=== PATIENT | female | born 1980 | race Caucasian/White ===

== ENCOUNTER 2016-06-19 21:48 | Emergency (ER) | payer OTHER ==
[~2016-06-19] VITALS: Ht 160 cm; Wt 126.7 kg
[~2016-06-19 21:48] MED LIST: ALBUAER2 INH; ASPI-390 PO; ATV/1 PO; BCPILLS PO; CETI10TA84 PO; CYM/30 PO; MODA1TAB5 PO
[2016-06-19 21:55] VITALS: TEMP 36.7; Ht 160 cm; Wt 126.7 kg
[2016-06-19] MEDS ORDERED: SODIUM CHLORIDE 0.9% 1000ML 1,000 ML IV STA (22:44)
[2016-06-19] MEDS ORDERED: KETOROLAC TROMETHAMINE 30 MG/ML VIAL IV STA (22:44)
[2016-06-19] MEDS ORDERED: PROCHLORPERAZINE 5 MG/ML 2 ML VIAL IV STA (22:44)
[2016-06-19] MEDS ORDERED: DiphenhydrAMINE HCL 50 MG/ML VIAL IV STA (22:44)
[2016-06-19] MEDS ORDERED: MoRPHine SULFATE 10 MG/ML CARP/VIAL IV STA (23:45)
[2016-06-19] MEDS ORDERED: VNTHFA/IN INH (23:45)
[2016-06-19] MEDS ORDERED: SPR28 PO (23:47)
[2016-06-19] MEDS ORDERED: RIBO100T9 PO (23:47)
[2016-06-19] MEDS ORDERED: MAGN400T6 PO (23:47)
[2016-06-19] MEDS ORDERED: VTMD PO (23:47)
--- NOTE | 2016-06-20 00:44 | EMERGENCY ROOM VISIT NOTE ---
History First contact with patient: 22:31 Chief Complaint: HEADACHE Stated Complaint: MIGRAINE, EAR PAIN, NAUSEA History of Present Illness The patient is a 35 year old female who presents to the Emergency Room with complaints of a migraine headache which started earlier today. The patient states she has had a gradually worsening headache since this afternoon. She does have a history of migraines and sees Dr. Noel for these. She states she had an MRI last year. She takes magnesium and vitamin B2 daily. She took ibuprofen and Zofran at home without relief. She reports generalized head pain which she rates a 9/10. She has associated nausea, but no vomiting. She states this headache is similar to previous episode of migraines. She does report some left ear pain over the past few days, but states that she had this checked by her primary care provider today and they did not see any infection. She was recently treated for influenza and pneumonia. She denies any fevers/ chills, neck pain/stiffness, numbness, weakness, changes in vision, slurred speech or confusion. Review of Systems A complete 10-point Review of Systems was discussed with the patient, with pertinent positives and negatives listed in the History of Present Illness. All remaining Review of Systems questions can be considered negative unless otherwise specified. Past Medical/Surgical History Medical Problems: (1) Migraines Family History Diabetes mellitus FH: cancer FH: heart disease FH: lung disease Kidney disease Kidney stones Social History Smoking Status: Never Smoker Alcohol Use: occasionally Marital Status: single Housing Status: lives with family Current/Historical Medications Scheduled Cetirizine (Zyrtec), 10 MG PO DAILY Duloxetine HCl (Cymbalta), 30 MG PO DAILY Ergocalciferol (Vitamin D), 50,000 UNIT PO WK Ethinyl Estrad/Norgestimate (Sprintec 28), 1 TAB PO DAILY Lorazepam (Ativan), 1 MG PO HS Magnesium Oxide (Mag-Ox), 400 MG PO HS Riboflavin (Vitamin B-2), 100 MG PO DAILY Scheduled PRN Albuterol Hfa (Ventolin Hfa), 2 PUFFS INH QID PRN for SOB/Wheezing Shruhid-Zivhkumpscrqf-Asslwiaq (Excedrin Migraine), 2 TABS PO Q6H PRN for Migraine Modafinil (Provigil), 100 MG PO DAILY PRN for restless legs Allergies Coded Allergies: Sulfa Antibiotics (Verified Allergy, Severe, SEVERE REACTION, 06/19/16) Amoxicillin (Verified Allergy, Intermediate, HIVES, 06/19/16) Clavulanic Acid (Verified Allergy, Intermediate, HIVES, 06/19/16) Lactose (Verified Allergy, Intermediate, 06/19/16) Silver Sulfadiazine (Verified Allergy, Intermediate, HIVES, 06/19/16) Latex (Verified Allergy, Mild, REDNESS, 06/19/16) Physical Exam Vital Signs Date Time Temp Pulse Resp B/P Pulse Ox O2 Delivery O2 Flow Rate FiO2 06/20/16 00:53 76 16 122/86 98 06/19/16 23:50 67 16 127/63 98 Room Air 06/19/16 21:55 36.7 82 18 146/91 96 Room Air Physical Exam VITALS: Vitals are noted on the nurse's note and reviewed by myself. Vital signs stable. GENERAL: This is a 35-year-old female, in no acute distress, nondiaphoretic, well-developed well-nourished. SKIN: Capillary reflex less than 2 seconds. HEENT: Normocephalic. PERRLA. EOMI. Nares patent. Mucous membranes moist. Neck is supple without nuchal rigidity. HEART: Regular rate and rhythm without murmurs gallops or rubs. LUNGS: Clear to auscultation bilaterally without wheezes, rales or rhonchi. ABDOMEN: Positive bowel sounds x 4. Soft, nontender to palpation. MUSCULOSKELETAL: Full range of motion of all extremities. Strength 5/5 throughout. NEURO: Patient was alert and oriented to person place and time. Normal sensation to light and sharp touch. Deep tendon reflexes 2+ throughout. Normal finger to nose testing. Normal rapid alternating movements. No focal neurological deficits. Medical Decision & Procedures Medications Administered Medications (Trade) Dose Ordered Sig/Paco Route Start Time Stop Time Status Last Admin Dose Admin Sodium Chloride (Nss 1000ml) 1,000 ml @ 999 mls/hr Q1H1M STAT IV 06/19/16 22:44 06/19/16 23:44 DC 06/19/16 23:06 999 MLS/HR Prochlorperazine Edisylate (Compazine Inj) 10 mg NOW STAT IV 06/19/16 22:44 06/19/16 22:47 DC 06/19/16 23:06 10 MG Diphenhydramine HCl (Benadryl Inj) 50 mg NOW STAT IV 06/19/16 22:44 06/19/16 22:47 DC 06/19/16 23:06 50 MG Ketorolac Tromethamine (Toradol Inj) 30 mg NOW STAT IV 06/19/16 22:44 06/19/16 22:47 DC 06/19/16 23:07 30 MG Morphine Sulfate (MoRPHine SULFATE INJ) 6 mg NOW STAT IV 06/19/16 23:45 06/19/16 23:47 DC 06/20/16 00:04 6 MG Medical Decision The differential diagnosis includes acute intracranial bleed, meningitis, encephalitis, mass or mass effect, sinusitis, infection, tumor, headache, temporal arteritis and carbon monoxide exposure, and migraine. The patient was evaluated as above. Previous records were reviewed. The patient has been here multiple times previously for migraines. She states that her symptoms today are similar to symptoms with previous migraines. She was initially treated with IV Compazine, Benadryl, and Toradol. She was hydrated with normal saline solution. She had some relief of her headache but stated that her pain was still a 7/10. She was then given 6 mg morphine IV and had full relief of her headache. She'll be discharged home to follow-up with her primary care provider or neurologist. She will return for worsening symptoms. Based on the patient's presentation, lab results, and imaging studies, I feel the patient is stable for outpatient treatment. Discharge instructions were reviewed with the patient. The patient verbalized understanding of my assessment and treatment plan and was discharged home in good condition. Impression Primary Impression: Migraine Departure Information Dispostion Home / Self-Care Condition GOOD Referrals No Doctor, Assigned (PCP) Patient Instructions My [facility] Additional Instructions You have been treated in the Emergency Department for a Headache. You have received pain medicine in the emergency department which impairs your ability to operate a vehicle. It is illegal for you to drive after receiving these medicines. For pain control, you can use the following oaim-gst-ubjstak medicines (if >12 yo): - Regular strength (325mg/tab) Tylenol (acetaminophen) 2 tabs every 4-6 hours as needed. Do not exceed 12 tablets in a 24 hour period. Avoid taking more than 4 grams (4000 mg) of Tylenol per day. This includes any other sources of acetaminophen you may take on a regular basis. - Regular strength (200 mg/tab) Advil (ibuprofen) 1-2 tabs every 4-6 hours as needed. Do not exceed a dose of 3200 mg per day. You should relax in a quiet, dark place for the rest of the day. Avoid any possible triggers including: cigarette smoke, caffeine, nicotine, chocolate, wine, beer, loud noises or music, or bright lights. You should schedule a follow-up appointment in 2-3 days with your Primary Care Provider or established Neurologist for further evaluation and treatment of your Headache. Return to the Emergency Department if your current symptoms worsen despite treatment course outlined above, or if you develop any of the following symptoms : intractable pain despite aforementioned treatment course, visual disturbances , loss of vision, unilateral weakness or facial drooping, slurring of speech, loss of coordination, or loss of consciousness. Problem Qualifiers Primary Impression: Migraine Migraine type: without aura Status migrainosus presence: without status migrainosus Intractability: not intractable Qualified Codes: G43.009 - Migraine without aura, not intractable, without status migrainosus
[2016-06-20 00:53] VITALS: BP 122/86; PULSE 76; O2SAT 98
[2016-06-27] MEDS ORDERED: CIPR-255 PO (07:18)
[2016-06-27] MEDS ORDERED: HYDR-5688 PO (07:18)
[2016-07-22] MEDS ORDERED: DICY10CA55 PO (13:37)
[2016-07-22] MEDS ORDERED: VITAMIN B2 PO (13:37)
[2016-07-22] MEDS ORDERED: PANT1TAB48 PO (13:37)
[2016-07-22] MEDS ORDERED: TRAM-10 PO (13:37)
== END 2016-06-20 00:54 | disposition home or self-care (01) ==
LOC: C.EDB 21:50
DX: G43.009 Migraine without aura, not intractable, without status migrainosus (principal); Z87.01 Personal history of pneumonia (recurrent); Z83.3 Family history of diabetes mellitus; Z79.899 Other long term (current) drug therapy

== ENCOUNTER 2016-06-25 10:59 | Inpatient (IN) | payer OTHER ==
[~2016-06-25] VITALS: Ht 160 cm; Wt 126.3 kg
[~2016-06-25 10:59] MED LIST changes: -ALBUAER2 INH; -BCPILLS PO; +MAGN400T6 PO; +RIBO100T9 PO; +SPR28 PO; +VNTHFA/IN INH; +VTMD PO
[2016-06-25] MEDS ORDERED: AMPH20TA2 PO (11:34)
[2016-06-25] MEDS ORDERED: KETOROLAC TROMETHAMINE 30 MG/ML VIAL IV STA (12:21)
[2016-06-25] MEDS ORDERED: HYDROmorphone INJ 1 MG/ML SYR IV STA (12:21)
[2016-06-25] MEDS ORDERED: SODIUM CHLORIDE 0.9% 1000ML 1,000 ML IV STA (12:21)
[2016-06-25] MEDS ORDERED: ONDANSETRON INJ 2 MG/ML 2 ML VIAL IV STA (12:21)
--- NOTE | 2016-06-25 12:24 | EMERGENCY ROOM VISIT NOTE ---
History Report prepared by Francois: Rashad Louis Under the Supervision of: Dr. Carlee Cheung M.D. First contact with patient: 12:05 Chief Complaint: ABDOMINAL PAIN Stated Complaint: ABD PAIN, N,D Nursing Triage Summary: Pt c/o right upper/mid abd pain around to back, ongoing thing, but this pain started last night after dinner. She had explosive diarrhea. Seeing Dr Guerrero. Nausea and vomiting as well. Fever yesterday Carpal Tunnel 06/07/16, then had flu immediatly after and then got pneumonia. History of Present Illness The patient is a 35 year old female who presents to the Emergency Room with complaints of persistent right-sided abdominal pain beginning last night. She notes also having a headache, fever of 102 yesterday, nausea, and diarrhea. She took Ibuprofen this morning for her headache. The patient also notes having a cough from a recent diagnosis of pneumonia. She reports following with Dr. Guerrero for potential gallbladder issues. Source of History: patient Onset: last night Position: abdomen (right-sided) Quality: other (abdominal pain) Timing: other (persistent) Associated Symptoms: + cough, + diarrhea, + fevers (102 yesterday), + headache, + nausea Review of Systems See HPI for pertinent positives & negatives. A total of 10 systems reviewed and were otherwise negative. Past Medical & Surgical Medical Problems: (1) Migraines Family History Diabetes mellitus FH: cancer FH: heart disease FH: lung disease Kidney disease Kidney stones Social History Smoking Status: Former Smoker Alcohol Use: occasionally Marital Status: single Housing Status: lives with family Current/Historical Medications Scheduled Amphetamine-Dextroamphetamine 20MG (Adderall 20MG), 20 MG PO BID Cetirizine (Zyrtec), 10 MG PO DAILY Duloxetine HCl (Cymbalta), 30 MG PO DAILY Ergocalciferol (Vitamin D), 50,000 UNIT PO WK Ethinyl Estrad/Norgestimate (Sprintec 28), 1 TAB PO DAILY Lorazepam (Ativan), 1 MG PO HS Magnesium Oxide (Mag-Ox), 400 MG PO HS Riboflavin (Vitamin B-2), 100 MG PO DAILY Scheduled PRN Albuterol Hfa (Ventolin Hfa), 2 PUFFS INH QID PRN for SOB/Wheezing Yvwkspu-Ppieflsxherok-Nwzzgozn (Excedrin Migraine), 2 TABS PO Q6H PRN for Migraine Modafinil (Provigil), 100 MG PO DAILY PRN for restless legs Allergies Coded Allergies: Sulfa Antibiotics (Verified Allergy, Severe, SEVERE REACTION, 06/25/16) Amoxicillin (Verified Allergy, Intermediate, HIVES, 06/25/16) Clavulanic Acid (Verified Allergy, Intermediate, HIVES, 06/25/16) Lactose (Verified Allergy, Intermediate, 06/25/16) Silver Sulfadiazine (Verified Allergy, Intermediate, HIVES, 06/25/16) Latex (Verified Allergy, Mild, REDNESS, 06/25/16) Cephalexin (Verified Allergy, Unknown, hives, 06/25/16) Physical Exam Vital Signs Date Time Temp Pulse Resp B/P Pulse Ox O2 Delivery O2 Flow Rate FiO2 06/25/16 16:06 104 20 107/66 98 Room Air 06/25/16 15:01 77 18 104/63 94 Room Air 06/25/16 13:10 82 18 124/78 95 Room Air 06/25/16 11:03 36.6 103 18 137/96 94 Room Air Physical Exam CONSTITUTIONAL: Mild distress. HEENT: No icterus, moist mucous membranes NECK: No meningismus, trachea is midline. CARDIOVASCULAR: Regular rate, normal perfusion RESPIRATORY: Unlabored breathing. Clear to auscultation. GASTROINTESTINAL: Mild right upper quadrant tenderness. GENITOURINARY: No flank tenderness MUSCULOSKELETAL: Full range of motion NEUROLOGIC: No acute gross focal deficits. PSYCHIATRIC: Normal affect SKIN: Normal for ethnicity. Medical Decision & Procedures ER Provider Diagnostic Interpretation: Radiology results as stated below per my review and radiologist interpretation. CHEST 2 VIEWS ROUTINE FINDINGS: The cardiac and mediastinal contours are normal. There is no evidence of focal pulmonary consolidation. There is no evidence of failure. No pleural effusions are visualized.[ No free air is visualized IMPRESSION: No active disease in the chest. Electronically signed by: Morteza Donnelly M.D. 06/25/2016 1:37 PM Dictated Date/Time: 06/25/2016 1:36 PM ULTRASOUND RIGHT UPPER QUADRANT ABDOMEN FINDINGS: Liver: The liver is enlarged, measuring over 19 cm in length. The liver demonstrates heterogeneously increased echotexture consistent with hepatic steatosis. There is no intrahepatic biliary ductal dilatation. The main portal vein is patent. Gallbladder: Normal biliary sludge is noted. No shadowing gallstones are identified. There is no gallbladder wall thickening or pericholecystic fluid. A sonographic Whaley's sign is reportedly absent. The common bile duct measures up to 0.5 cm in diameter. Pancreas: Visualized portions of the pancreatic head and body are normal in appearance. Right kidney: Survey images of the right kidney demonstrate normal size and echotexture. There is no hydronephrosis. Ascites: None. IMPRESSION: 1. No acute sonographic abnormality is identified. No shadowing gallstones are seen. Minimal biliary sludge is noted. 2. Hepatomegaly and hepatic steatosis. Electronically signed by: Aris Fox M.D. 06/25/2016 3:31 PM Dictated Date/Time: 06/25/2016 3:29 PM Laboratory Results 06/25/16 12:10 Red Blood Count 4.57, Mean Corpuscular Volume 91.0, Mean Corpuscular Hemoglobin 31.1, Mean Corpuscular Hemoglobin Concent 34.1, Mean Platelet Volume 10.3, Neutrophils (%) (Auto) 64.4, Lymphocytes (%) (Auto) 20.7, Monocytes (%) (Auto) 11.5, Eosinophils (%) (Auto) 3.0, Basophils (%) (Auto) 0.3, Neutrophils # (Auto ) 5.00, Lymphocytes # (Auto) 1.61, Monocytes # (Auto) 0.89, Eosinophils # (Auto ) 0.23, Basophils # (Auto) 0.02 06/25/16 12:10 Test 06/25/16 12:10 06/25/16 13:00 White Blood Count 7.76 K/uL (4.8-10.8) Red Blood Count 4.57 M/uL (4.2-5.4) Hemoglobin 14.2 g/dL (12.0-16.0) Hematocrit 41.6 % (37-47) Mean Corpuscular Volume 91.0 fL (80-100) Mean Corpuscular Hemoglobin 31.1 pg (25-34) Mean Corpuscular Hemoglobin Concent 34.1 g/dl (32-36) Platelet Count 336 K/uL (130-400) Mean Platelet Volume 10.3 fL (7.4-10.4) Neutrophils (%) (Auto) 64.4 % Lymphocytes (%) (Auto) 20.7 % Monocytes (%) (Auto) 11.5 % Eosinophils (%) (Auto) 3.0 % Basophils (%) (Auto) 0.3 % Neutrophils # (Auto) 5.00 K/uL (1.4-6.5) Lymphocytes # (Auto) 1.61 K/uL (1.2-3.4) Monocytes # (Auto) 0.89 K/uL (0.11-0.59) Eosinophils # (Auto) 0.23 K/uL (0-0.5) Basophils # (Auto) 0.02 K/uL (0-0.2) RDW Standard Deviation 42.9 fL (36.4-46.3) RDW Coefficient of Variation 12.9 % (11.5-14.5) Immature Granulocyte % (Auto) 0.1 % Immature Granulocyte # (Auto) 0.01 K/uL (0.00-0.02) Anion Gap 11.0 mmol/L (3-11) Est Creatinine Clear Calc Drug Dose 143.1 ml/min Estimated GFR () 127.9 Estimated GFR (Non- 110.4 BUN/Creatinine Ratio 11.9 (10-20) Calcium Level 8.8 mg/dl (8.5-10.1) Total Bilirubin 0.5 mg/dl (0.2-1) Direct Bilirubin 0.1 mg/dl (0-0.2) Aspartate Amino Transf (AST/SGOT) 40 U/L (15-37) Alanine Aminotransferase (ALT/SGPT) 64 U/L (12-78) Alkaline Phosphatase 58 U/L (45-117) Total Protein 7.0 gm/dl (6.4-8.2) Albumin 3.6 gm/dl (3.4-5.0) Lipase 152 U/L (73-393) Human Chorionic Gonadotropin, Qual NEG (NEG) Urine Color YELLOW Urine Appearance CLEAR (CLEAR) Urine pH 5.0 (4.5-7.5) Urine Specific [place] 1.012 (1.000-1.030) Urine Protein NEG (NEG) Urine Glucose (UA) NEG (NEG) Urine Ketones NEG (NEG) Urine Occult Blood TRACE (NEG) Urine Nitrite NEG (NEG) Urine Bilirubin NEG (NEG) Urine Urobilinogen NEG (NEG) Urine Leukocyte Esterase NEG (NEG) Urine WBC (Auto) 1-5 /hpf (0-5) Urine RBC (Auto) 5-10 /hpf (0-4) Urine Hyaline Casts (Auto) 1-5 /lpf (0-5) Urine Epithelial Cells (Auto) 20-30 /lpf (0-5) Urine Bacteria (Auto) 1+ (NEG) Labs reviewed by ED physician. Medications Administered Medications (Trade) Dose Ordered Sig/Paco Route Start Time Stop Time Status Last Admin Dose Admin Sodium Chloride (Nss 1000ml) 1,000 ml @ 0 mls/hr Q0M STAT IV 06/25/16 12:21 06/25/16 12:24 DC 06/25/16 12:28 999 MLS/HR Ketorolac Tromethamine (Toradol Inj) 30 mg NOW STAT IV 06/25/16 12:21 06/25/16 12:24 DC 06/25/16 12:36 30 MG Hydromorphone HCl (Dilaudid Inj) 1 mg PRN STAT IV 06/25/16 12:21 06/25/16 12:24 DC 06/25/16 12:37 1 MG Ondansetron HCl (Zofran Inj) 4 mg NOW STAT IV 06/25/16 12:21 06/25/16 12:24 DC 06/25/16 12:36 4 MG Metoclopramide HCl (Reglan Inj) 10 mg Q6H IV 06/25/16 15:00 07/25/16 14:59 06/25/16 15:02 10 MG ED Course 1220: Past medical records reviewed. The patient was evaluated in room C5. A complete history and physical examination was performed. 1221: Ordered Zofran Inj 4 mg, Dilaudid Inj 1 mg IV, Toradol Inj 30 mg, and NSS 1,000 ml @ 0 mls/hr Wide Open IV. 1500: Ordered Reglan Inj 10 mg IV. 1647: Discussed the patient's case with HUBERT Norman. The patient will be evaluated for further management. Medical Decision Differentials include cholecystitis, pneumonia, and pancreatitis. 35-year-old presents to the emergency department with acute on chronic right upper quadrant pain and a report of fever to 102 yesterday. His systems of cough without shortness of breath. Chest x-ray negative for pneumonia. She has a history of abnormal testing around her gallbladder and is concerned she may need a cholecystectomy. Case discussed with Dr. Gage cover for Dr. Guerrero who evaluated patient and will admit. Consults Time Called: 1644 Consulting Physician: HUBERT Norman [facility] Returned Call: [phone] Discussed the patient's case with HUBERT Norman. The patient will be evaluated for further management. Impression Primary Impression: Right upper quadrant abdominal pain Scribe Attestation The scribe's documentation has been prepared under my direction and personally reviewed by me in its entirety. I confirm that the note above accurately reflects all work, treatment, procedures, and medical decision making performed by me. Departure Information Dispostion Being Evaluated By Hospitalist Referrals Dian Parker D.O. (PCP) Patient Instructions My [facility]
[2016-06-25 13:01] LABS: BASO % 0.3 %; BASO ABS # 0.02 K/uL (0-0.2); COMPLETE YES; HEMATOCRIT 41.6 % (37-47); IG% 0.1 %; LYMPH % 20.7 %; LYMPH ABS # 1.61 K/uL (1.2-3.4); MEAN CORPUSCULAR HEMOGLOBIN 31.1 pg (25-34); MEAN CORPUSCULAR HGB CONC 34.1 g/dl (32-36); MEAN PLATELET VOLUME 10.3 fL (7.4-10.4); MONO % 11.5 %; NEUT % 64.4 %; PLATELET COUNT 336 K/uL (130-400); RED BLOOD COUNT 4.57 M/uL (4.2-5.4); WHITE BLOOD COUNT 7.76 K/uL (4.8-10.8)
[2016-06-25 13:21] LABS: BUN/CREATININE RATIO 11.9 (10-20); CALCIUM 8.8 mg/dl (8.5-10.1); CREATININE 0.71 mg/dl (0.60-1.20); POTASSIUM 3.8 mmol/L (3.5-5.1)
[2016-06-25 13:31] LABS: URINE APPEARANCE CLEAR (CLEAR); URINE BILIRUBIN NEG (NEG); URINE COLOR YELLOW; URINE EPITHELIAL CELL AUTO 20-30 /lpf (0-5); URINE NITRITE NEG (NEG); URINE SPECIFIC GRAVITY 1.012 (1.000-1.030); UROBILINOGEN NEG (NEG)
[2016-06-25 13:34] LABS: PREG INTERNAL NEGATIVE QC NEG CLEAR BACKGROUND; PREG INTERNAL POSITIVE QC POS CONTROL LINE
[2016-06-25 13:37] LABS: MANUAL MICROSCOPIC REQUIRED? NO; REVIEW REQ? NO
--- NOTE | 2016-06-25 13:38 | DIAGNOSTIC IMAGING REPORT ---
CHEST 2 VIEWS ROUTINE CLINICAL HISTORY: Right upper quadrant abdominal pain and fever. Nausea. Vomiting. COMPARISON STUDY: 09/28/2014 FINDINGS: The cardiac and mediastinal contours are normal. There is no evidence of focal pulmonary consolidation. There is no evidence of failure. No pleural effusions are visualized.[ No free air is visualized IMPRESSION: No active disease in the chest. Electronically signed by: Morteza Donnelly M.D. 06/25/2016 1:37 PM Dictated Date/Time: 06/25/2016 1:36 PM
[2016-06-25] MEDS ORDERED: METOCLOPRAMIDE HCL INJ 5 MG/ML 2 ML VIAL IV SCH (15:00)
--- NOTE | 2016-06-25 15:32 | DIAGNOSTIC IMAGING REPORT ---
ULTRASOUND RIGHT UPPER QUADRANT ABDOMEN CLINICAL HISTORY: Right upper quadrant abdominal pain. COMPARISON STUDY: Abdominal ultrasound dated 06/11/2015. TECHNIQUE: Real-time, grayscale, and color flow sonography of the right upper quadrant of the abdomen was performed. Images are reviewed in the transverse and longitudinal planes. FINDINGS: Liver: The liver is enlarged, measuring over 19 cm in length. The liver demonstrates heterogeneously increased echotexture consistent with hepatic steatosis. There is no intrahepatic biliary ductal dilatation. The main portal vein is patent. Gallbladder: Normal biliary sludge is noted. No shadowing gallstones are identified. There is no gallbladder wall thickening or pericholecystic fluid. A sonographic Whaley's sign is reportedly absent. The common bile duct measures up to 0.5 cm in diameter. Pancreas: Visualized portions of the pancreatic head and body are normal in appearance. Right kidney: Survey images of the right kidney demonstrate normal size and echotexture. There is no hydronephrosis. Ascites: None. IMPRESSION: 1. No acute sonographic abnormality is identified. No shadowing gallstones are seen. Minimal biliary sludge is noted. 2. Hepatomegaly and hepatic steatosis. Electronically signed by: Aris Fox M.D. 06/25/2016 3:31 PM Dictated Date/Time: 06/25/2016 3:29 PM
--- NOTE | 2016-06-25 16:51 | History and Physical ---
History & Physical Date & Time of Service: Jun 25, 2016 at 16:44 Chief Complaint: Abd Pain, N,D Primary Care Physician: Dian Parker D.O. History of Present Illness Source: patient, family recent RUQ pain w/ radiation to back- long h/o sxs associated with gb- u/s shows sludge. past hida- nl. recent pneumonia- treated as outpt. some recent fever per pt and N/V Past Medical/Surgical History Medical Problems: (1) Migraines Status: Chronic Family History Diabetes mellitus FH: cancer FH: heart disease FH: lung disease Kidney disease Kidney stones Social History Smoking Status: Former Smoker Marital Status: single Immunizations History of Influenza Vaccine: No History of Tetanus Vaccine?: Yes Multi-Drug Resistant Organisms History of MDRO: No Allergies Coded Allergies: Sulfa Antibiotics (Verified Allergy, Severe, SEVERE REACTION, 06/25/16) Amoxicillin (Verified Allergy, Intermediate, HIVES, 06/25/16) Clavulanic Acid (Verified Allergy, Intermediate, HIVES, 06/25/16) Lactose (Verified Allergy, Intermediate, 06/25/16) Silver Sulfadiazine (Verified Allergy, Intermediate, HIVES, 06/25/16) Latex (Verified Allergy, Mild, REDNESS, 06/25/16) Cephalexin (Verified Allergy, Unknown, hives, 06/25/16) Home Medications Scheduled Amphetamine-Dextroamphetamine 20MG (Adderall 20MG), 20 MG PO BID Cetirizine (Zyrtec), 10 MG PO DAILY Duloxetine HCl (Cymbalta), 30 MG PO DAILY Ergocalciferol (Vitamin D), 50,000 UNIT PO WK Ethinyl Estrad/Norgestimate (Sprintec 28), 1 TAB PO DAILY Lorazepam (Ativan), 1 MG PO HS Magnesium Oxide (Mag-Ox), 400 MG PO HS Riboflavin (Vitamin B-2), 100 MG PO DAILY Scheduled PRN Albuterol Hfa (Ventolin Hfa), 2 PUFFS INH QID PRN for SOB/Wheezing Naegqxq-Bqgauybdohlqf-Nhtkczdj (Excedrin Migraine), 2 TABS PO Q6H PRN for Migraine Modafinil (Provigil), 100 MG PO DAILY PRN for restless legs Review of Systems Constitutional: + fever, No chills, No sweats, No weight loss ENT: No sore throat Respiratory: No cough, No wheezing Cardiovascular: No chest pain Abdomen: + diarrhea, + nausea, + pain, + vomiting, No constipation Musculoskeletal: No joint pain Genitourinary - Female: No dysuria Neurologic: No weakness Endocrine: No fatigue Integumentary: No rash Physical Exam Vital Signs Date Time Temp Pulse Resp B/P Pulse Ox O2 Delivery O2 Flow Rate FiO2 06/25/16 16:06 104 20 107/66 98 Room Air 06/25/16 15:01 77 18 104/63 94 Room Air 06/25/16 13:10 82 18 124/78 95 Room Air 06/25/16 11:03 36.6 103 18 137/96 94 Room Air General Appearance: no apparent distress Head: normocephalic Eyes: + abnormal sclerae exam (hyperemic) Neck: supple Respiratory/Chest: normal breath sounds, no respiratory distress Cardiovascular: regular rate, rhythm Abdomen/GI: normal bowel sounds, soft, + tenderness (mild RUQ) Extremities/Musculoskelatal: no pedal edema Neurologic/Psych: alert Skin: no rash Diagnostics Laboratory Results Results Past 24 Hours Test 06/25/16 12:10 06/25/16 13:00 Range/Units White Blood Count 7.76 4.8-10.8 K/uL Red Blood Count 4.57 4.2-5.4 M/uL Hemoglobin 14.2 12.0-16.0 g/dL Hematocrit 41.6 37-47 % Mean Corpuscular Volume 91.0 80-100 fL Mean Corpuscular Hemoglobin 31.1 25-34 pg Mean Corpuscular Hemoglobin Concent 34.1 32-36 g/dl Platelet Count 336 130-400 K/uL Mean Platelet Volume 10.3 7.4-10.4 fL Neutrophils (%) (Auto) 64.4 % Lymphocytes (%) (Auto) 20.7 % Monocytes (%) (Auto) 11.5 % Eosinophils (%) (Auto) 3.0 % Basophils (%) (Auto) 0.3 % Neutrophils # (Auto) 5.00 1.4-6.5 K/uL Lymphocytes # (Auto) 1.61 1.2-3.4 K/uL Monocytes # (Auto) 0.89 0.11-0.59 K/uL Eosinophils # (Auto) 0.23 0-0.5 K/uL Basophils # (Auto) 0.02 0-0.2 K/uL RDW Standard Deviation 42.9 36.4-46.3 fL RDW Coefficient of Variation 12.9 11.5-14.5 % Immature Granulocyte % (Auto) 0.1 % Immature Granulocyte # (Auto) 0.01 0.00-0.02 K/uL Sodium Level 141 136-145 mmol/L Potassium Level 3.8 3.5-5.1 mmol/L Chloride Level 104 98-107 mmol/L Carbon Dioxide Level 26 21-32 mmol/L Anion Gap 11.0 3-11 mmol/L Blood Urea Nitrogen 8 7-18 mg/dl Creatinine 0.71 0.60-1.20 mg/dl Est Creatinine Clear Calc Drug Dose 143.1 ml/min Estimated GFR () 127.9 Estimated GFR (Non- 110.4 BUN/Creatinine Ratio 11.9 10-20 Random Glucose 89 70-99 mg/dl Calcium Level 8.8 8.5-10.1 mg/dl Total Bilirubin 0.5 0.2-1 mg/dl Direct Bilirubin 0.1 0-0.2 mg/dl Aspartate Amino Transf (AST/SGOT) 40 15-37 U/L Alanine Aminotransferase (ALT/SGPT) 64 12-78 U/L Alkaline Phosphatase 58 45-117 U/L Total Protein 7.0 6.4-8.2 gm/dl Albumin 3.6 3.4-5.0 gm/dl Lipase 152 73-393 U/L Human Chorionic Gonadotropin, Qual NEG NEG Urine Color YELLOW Urine Appearance CLEAR CLEAR Urine pH 5.0 4.5-7.5 Urine Specific [place] 1.012 1.000-1.030 Urine Protein NEG NEG Urine Glucose (UA) NEG NEG Urine Ketones NEG NEG Urine Occult Blood TRACE NEG Urine Nitrite NEG NEG Urine Bilirubin NEG NEG Urine Urobilinogen NEG NEG Urine Leukocyte Esterase NEG NEG Urine WBC (Auto) 1-5 0-5 /hpf Urine RBC (Auto) 5-10 0-4 /hpf Urine Hyaline Casts (Auto) 1-5 0-5 /lpf Urine Epithelial Cells (Auto) 20-30 0-5 /lpf Urine Bacteria (Auto) 1+ NEG Impression Assessment and Plan adm with abd pain- may be recurrent biliary colic- evidence of sludge. Some concern for recent pneumonia- will ask medical team to see pt- probable cholecystectomy next 24 -48 hrs. may have po meds, add cipro unless medicine feels otherwise. Possible OR tomorrow pm
[2016-06-25] MEDS ORDERED: MoRPHine SULFATE 2 MG/ML CARP IV PRN (17:00)
[2016-06-25] MEDS ORDERED: PROMETHAZINE HCL INJ 25 MG in SODIUM CHLORIDE 0.9% 50ML 50 ML IV PRN (17:00)
[2016-06-25] MEDS ORDERED: HYDROCODONE/ACETAMOPHEN 5/325MG TAB PO PRN (17:00)
[2016-06-25] MEDS: MoRPHine SULFATE 4 MG/ML 1 ML CARP\\VIAL IV PRN (17:37)
[2016-06-25 19:20] VITALS: BP 122/80; PULSE 96; TEMP 37; O2SAT 93; Ht 160 cm; Wt 126.3 kg
[2016-06-25] MEDS ORDERED: LACTATED RINGER'S 1000ML 1,000 ML IV SCH (20:00)
[2016-06-25] MEDS: CIPROFLOXACIN / D5W 400 MG in PREMIXED IN D5W 200 ML IV SCH (20:13)
[2016-06-25] MEDS ORDERED: RIZA10TA19 PO (20:42)
[2016-06-25] MEDS ORDERED: OMEP40CA41 PO (20:42)
[2016-06-25] MEDS ORDERED: PROP10TA7 PO (20:42)
[2016-06-25] MEDS ORDERED: ONDA4TAB65 PO (20:42)
[2016-06-25] MEDS ORDERED: KETO10TA PO (20:42)
[2016-06-25] MEDS ORDERED: DIVA250T PO (20:42)
[2016-06-25] MEDS ORDERED: AMPHETAMINE ASP/SULF/DEXTRAMPH 10 MG TAB PO SCH (21:00)
[2016-06-25] MEDS ORDERED: MAGNESIUM OXIDE 400 MG TAB PO SCH (21:00)
--- NOTE | 2016-06-25 21:25 | Medical Consult ---
Consultation Date of Consultation: Jun 25, 2016. Attending Physician: Wesley Gage M.D. Reason for Consultation: Pre Op Evaluation History of Present Illness 35 year old female who presented to the ER today with worsening RUQ abdominal pain and nausea. Patient reports she has had "problems with her gallbladder" for the past 3 years. She reports episodes of constipation, diarrhea, nausea, and bloating. Food seems to aggravate the symptoms. Today she reports increased RUQ pain radiating to the back and nausea. She denies vomiting or diarrhea. Patiently was recently treated for influenza and pneumonia. She feels her respiratory symptoms have resolved. She denies chest pain and shortness of breath. No lightheadedness, dizziness, diaphoresis, or syncopal events. She reports she had a fever about one week ago when she had the flu. She denies any other recent fever or chills. She denies any urinary symptoms. In the ER today patient had an US that showed mild gallbladder sludge. Dr. Gage evaluated the patient in the ED and is planning on laparoscopic cholecystectomy tomorrow. Past Medical/Surgical History Medical Problems: (1) Asthma, mild persistent Status: Chronic (2) Depression Status: Chronic (3) GERD (gastroesophageal reflux disease) Status: Chronic (4) Migraine Status: Chronic Surgical Problems: (1) H/O exploratory laparotomy Status: Chronic (2) History of carpal tunnel surgery Status: Chronic (3) S/P surgical manipulation of ankle joint Status: Chronic Family History FH: breast cancer MOTHER Social History Smoking Status: Former Smoker Alcohol Use: none Allergies Coded Allergies: Sulfa Antibiotics (Verified Allergy, Severe, SEVERE REACTION, 06/25/16) Amoxicillin (Verified Allergy, Intermediate, HIVES, 06/25/16) Clavulanic Acid (Verified Allergy, Intermediate, HIVES, 06/25/16) Lactose (Verified Allergy, Intermediate, 06/25/16) Silver Sulfadiazine (Verified Allergy, Intermediate, HIVES, 06/25/16) Latex (Verified Allergy, Mild, REDNESS, 06/25/16) Cephalexin (Verified Allergy, Unknown, hives, 06/25/16) Home Medications Prilosec (Omeprazole) 40 Mg Cap 1 Cap PO DAILY 30 Days Inderal (Propranolol Hcl) 10 Mg Tab 1 Tab PO BID PRN 30 Days Toradol (Ketorolac Tromethamine) 10 Mg Tab 10 Mg PO QID PRN Zofran (Ondansetron Hcl) 4 Mg Tab 1 Tab PO TID PRN Depakote Er (Divalproex Sodium) 250 Mg Tab 1 Tab PO BID 30 Days Maxalt-Section [place] (Rizatriptan Benzoate) 10 Mg Tab 10 Mg PO PRN Adderall 20MG (Amphetamine-Dextroamphetamine 20MG) 1 Tab Tab 20 Mg PO BID Mag-Ox (Magnesium Oxide) 400 Mg Tab 400 Mg PO HS Vitamin D (Ergocalciferol) 50,000 Interunit Cap 50,000 Unit PO WK WEDNESDAYS Vitamin B-2 (Riboflavin) 100 Mg Tab 100 Mg PO DAILY Sprintec 28 (Ethinyl Estradiol/Norgestimate) 1 Tab Tab 1 Tab PO DAILY Ventolin Hfa (Albuterol) 200 Puffs/82604 Mcg Aers 2 Puffs INH QID PRN Ativan (Lorazepam) 1 Mg Tab 1 Mg PO HS PRN Cymbalta (Duloxetine HCl) 30 Mg Cap 30 Mg PO DAILY Excedrin Migraine (Djownvb-Cbgfbpxzjencj-Sdoguomq) 1 Tab Tab 2 Tabs PO Q6H PRN Zyrtec (Cetirizine HCl) 10 Mg Tab 10 Mg PO DAILY Current Inpatient Medications Current Inpatient Medications Medications (Trade) Dose Ordered Sig/Paco Route Start Time Stop Time Status Last Admin Dose Admin Lactated Ringer's 1,000 ml @ 75 mls/hr [id number] IV 06/25/16 20:00 07/25/16 16:50 06/25/16 19:24 75 MLS/HR Ciprofloxacin/ Dextrose/Prmx (Cipro / D5w/ Premixed D5W) 200 ml @ 100 mls/hr Q12H IV 06/25/16 20:00 07/05/16 19:59 06/25/16 20:13 100 MLS/HR Morphine Sulfate (MoRPHine SULFATE INJ) 2 mg Q4H PRN IV 06/25/16 17:00 07/09/16 16:59 Morphine Sulfate (MoRPHine SULFATE INJ) 4 mg Q4H PRN IV 06/25/16 17:00 07/09/16 16:59 06/25/16 17:37 4 MG Acetaminophen/ Hydrocodone Bitart ([place] 5/325 Tab) 1 tab Q4 PRN PO 06/25/16 17:00 07/09/16 16:59 Acetaminophen/ Hydrocodone Bitart 2 tab 2 tab Q4 PRN PO 06/25/16 17:00 07/09/16 16:59 Promethazine HCl/ Sodium Chloride (Phenergan Inj/ Nss 50ml) 51 ml @ 204 mls/hr Q6H PRN IV 06/25/16 17:00 07/25/16 16:59 Ondansetron HCl (Zofran Inj) 4 mg Q6H PRN IV 06/25/16 17:00 07/25/16 16:59 Amphetamine Aspartate/ Amphetam Sulf (Amphetamine Aspartate/Amph Sulf/Dextramphet) 20 mg BID PO 06/25/16 21:00 07/09/16 20:59 UNV Cetirizine HCl (zyrTEC TAB) 10 mg DAILY PO 06/26/16 09:00 07/26/16 08:59 Divalproex Sodium (Depakote Extended Rel Tab) 250 mg BID PO 06/25/16 21:00 07/25/16 20:59 Duloxetine HCl (Cymbalta Cap) 30 mg DAILY PO 06/26/16 09:00 07/26/16 08:59 Magnesium Oxide (Mag-Ox Tab) 400 mg HS PO 06/25/16 21:00 07/25/16 20:59 Miscellaneous Information (Order Awaiting Action) 1 ea QS N/A 06/26/16 00:00 07/26/16 00:00 Pantoprazole Sodium (Protonix Tab) 40 mg QAM PO 06/26/16 09:00 07/26/16 08:59 Review of Systems 10 point review of systems was completed with the pertinent positives and negatives noted per the HPI Physical Exam Date Time Temp Pulse Resp B/P Pulse Ox O2 Delivery O2 Flow Rate FiO2 06/25/16 19:20 93 Room Air 06/25/16 19:20 37.0 96 14 122/80 93 Room Air 06/25/16 19:20 37.0 96 14 122/80 93 Room Air 06/25/16 18:43 75 20 127/66 93 Room Air 06/25/16 17:32 75 20 119/68 94 Room Air 06/25/16 16:06 104 20 107/66 98 Room Air 06/25/16 15:01 77 18 104/63 94 Room Air 06/25/16 13:10 82 18 124/78 95 Room Air 06/25/16 11:03 36.6 103 18 137/96 94 Room Air General Appearance: no apparent distress Head: normocephalic Eyes: normal inspection ENT: hearing grossly normal Neck: supple, no JVD Respiratory/Chest: lungs clear, normal breath sounds, no respiratory distress Cardiovascular: regular rate, rhythm, no edema, normal peripheral pulses Abdomen/GI: normal bowel sounds, soft, + tenderness (RUQ) Extremities/Musculoskelatal: normal inspection, no calf tenderness Neurologic/Psych: no motor/sensory deficits, alert, normal mood/affect, oriented x 3 Skin: normal color, warm/dry Laboratory Results Last 24 Hours Test 06/25/16 12:10 06/25/16 13:00 White Blood Count 7.76 K/uL Red Blood Count 4.57 M/uL Hemoglobin 14.2 g/dL Hematocrit 41.6 % Mean Corpuscular Volume 91.0 fL Mean Corpuscular Hemoglobin 31.1 pg Mean Corpuscular Hemoglobin Concent 34.1 g/dl Platelet Count 336 K/uL Mean Platelet Volume 10.3 fL Neutrophils (%) (Auto) 64.4 % Lymphocytes (%) (Auto) 20.7 % Monocytes (%) (Auto) 11.5 % Eosinophils (%) (Auto) 3.0 % Basophils (%) (Auto) 0.3 % Neutrophils # (Auto) 5.00 K/uL Lymphocytes # (Auto) 1.61 K/uL Monocytes # (Auto) 0.89 K/uL Eosinophils # (Auto) 0.23 K/uL Basophils # (Auto) 0.02 K/uL RDW Standard Deviation 42.9 fL RDW Coefficient of Variation 12.9 % Immature Granulocyte % (Auto) 0.1 % Immature Granulocyte # (Auto) 0.01 K/uL Sodium Level 141 mmol/L Potassium Level 3.8 mmol/L Chloride Level 104 mmol/L Carbon Dioxide Level 26 mmol/L Anion Gap 11.0 mmol/L Blood Urea Nitrogen 8 mg/dl Creatinine 0.71 mg/dl Est Creatinine Clear Calc Drug Dose 143.1 ml/min Estimated GFR () 127.9 Estimated GFR (Non- 110.4 BUN/Creatinine Ratio 11.9 Random Glucose 89 mg/dl Calcium Level 8.8 mg/dl Total Bilirubin 0.5 mg/dl Direct Bilirubin 0.1 mg/dl Aspartate Amino Transf (AST/SGOT) 40 U/L Alanine Aminotransferase (ALT/SGPT) 64 U/L Alkaline Phosphatase 58 U/L Total Protein 7.0 gm/dl Albumin 3.6 gm/dl Lipase 152 U/L Human Chorionic Gonadotropin, Qual NEG Urine Color YELLOW Urine Appearance CLEAR Urine pH 5.0 Urine Specific [place] 1.012 Urine Protein NEG Urine Glucose (UA) NEG Urine Ketones NEG Urine Occult Blood TRACE Urine Nitrite NEG Urine Bilirubin NEG Urine Urobilinogen NEG Urine Leukocyte Esterase NEG Urine WBC (Auto) 1-5 /hpf Urine RBC (Auto) 5-10 /hpf Urine Hyaline Casts (Auto) 1-5 /lpf Urine Epithelial Cells (Auto) 20-30 /lpf Urine Bacteria (Auto) 1+ Assessment & Plan RUQ ABDOMINAL PAIN, BILIARY COLIC - admitted to med/surg under surgery service - US shows mild gallbladder sludge; no signs of acute cholecystitis - surgery planning on laparoscopic cholecystectomy tomorrow - on empiric Cipro per surgery - patient seems to have recovered from the influenza and pneumonia; CXR is clear - will check EKG but due to patient's young age, absence of co-morbidities, and absence of cardio / pulmonary complaints; she can likely proceed to the OR and be considered low risk ASTHMA - no signs of acute exacerbation, no wheezing on exam - only uses inhalers PRN MIGRAINES - continue Depakote DEPRESSION - continue duloxetine JENNIFER - currently being treated with Adderall DVT PROPHYLAXIS - SCDs due to upcoming surgery ATTENDING ADDENDUM Record reviewed. Patient interviewed and examined. Care coordinated with HUBERT Norman. 35 yoF with chronic, intermittent RUQ abdominal pain provoked with eating along with chronic diarrhea. She is scheduled for cholecystectomy tomorrow and Medicine was asked to provide a pre-op assessment. Aside from obesity, she has no known risk factors for cardiac disease and has been free of chest pain or shortness of breath in recent months. She reports a high level of activity with running errands, carrying heavy grocery bags, and is able to walk a mile at a brisk pace without stopping. She has reported asthma, but denies any exacerbations, does not require medications. She is taking Adderall but this has been on hold at home since she has been ill. She reports some nausea with anesthesia in the past, but otherwise denies donna-operative issues with prior surgeries. She does take a BB, but this is not consistent. She denies a personal or family history of blood clots. She reports a recent h/o flu and is s/p treatment with resolution of symptoms and a clear CXR. No EKG is required as she is a low risk patient <50 yrs old. On exam she is hemodynamically stable and afebrile. Lungs are CTAB and heart sounds are normal with S1/2 heard and no m/g/r. RUQ tenderness to palpation is present. It is recommended that patient proceed to surgery without further workup at this point. Will stop Mg supplements, cont to hold her Adderall as she has been off of this for the last several days. DVT prophylaxis per protocol. Thank you for this consult. Darleen Gerber DO (Hospitalist)
[2016-06-25] MEDS: HYDROCODONE/ACETAMOPHEN 5/325MG TAB PO PRN (22:04)
[2016-06-25] MEDS: ONDANSETRON INJ 2 MG/ML 2 ML VIAL IV PRN (22:05)
[2016-06-25] MEDS: DIVALPROEX 250 MG EXTENDED REL TAB PO SCH (22:10)
[2016-06-25 22:50] VITALS: BP 130/75; PULSE 67; TEMP 36.7; O2SAT 96
[2016-06-26] VITALS (12 sets, daily range): BP systolic 100–142; BP diastolic 63–90; PULSE 47–92; TEMP 36.5–37.2; O2SAT 91–98
[2016-06-26] MEDS: ONDANSETRON INJ 2 MG/ML 2 ML VIAL IV PRN (04:07)
[2016-06-26] MEDS: MoRPHine SULFATE 4 MG/ML 1 ML CARP\\VIAL IV PRN (04:07)
[2016-06-26 05:23] LABS: HEMATOCRIT 39.7 % (37-47); MEAN CELL VOLUME 91.5 fL (80-100); MEAN CORPUSCULAR HEMOGLOBIN 30.6 pg (25-34); MEAN CORPUSCULAR HGB CONC 33.5 g/dl (32-36); MEAN PLATELET VOLUME 9.7 fL (7.4-10.4); PLATELET COUNT 296 K/uL (130-400); RED BLOOD COUNT 4.34 M/uL (4.2-5.4)
[2016-06-26 06:06] LABS: BUN/CREATININE RATIO 11.1 (10-20); CALCIUM 8.6 mg/dl (8.5-10.1); CREATININE 0.71 mg/dl (0.60-1.20); POTASSIUM 4.1 mmol/L (3.5-5.1)
--- NOTE | 2016-06-26 06:22 | Surgery Progress Note ---
Surgery Progress Note Date of Service Jun 26, 2016. Subjective + nausea, No vomiting awake , alert, pain controlled Objective Vital Signs: Date Time Temp Pulse Resp B/P Pulse Ox O2 Delivery O2 Flow Rate FiO2 06/26/16 00:00 Room Air 06/25/16 22:50 36.7 67 15 130/75 96 Room Air 06/25/16 19:20 93 Room Air 06/25/16 19:20 37.0 96 14 122/80 93 Room Air 06/25/16 19:20 37.0 96 14 122/80 93 Room Air 06/25/16 18:43 75 20 127/66 93 Room Air 06/25/16 17:32 75 20 119/68 94 Room Air 06/25/16 16:06 104 20 107/66 98 Room Air 06/25/16 15:01 77 18 104/63 94 Room Air 06/25/16 13:10 82 18 124/78 95 Room Air 06/25/16 11:03 36.6 103 18 137/96 94 Room Air General Appearance: no apparent distress Respiratory/Chest: no respiratory distress Abdomen: non distended, soft Laboratory Results: Results Past 24 Hours Test 06/25/16 12:10 06/25/16 13:00 06/26/16 05:16 Range/Units White Blood Count 7.76 7.40 4.8-10.8 K/uL Red Blood Count 4.57 4.34 4.2-5.4 M/uL Hemoglobin 14.2 13.3 12.0-16.0 g/dL Hematocrit 41.6 39.7 37-47 % Mean Corpuscular Volume 91.0 91.5 80-100 fL Mean Corpuscular Hemoglobin 31.1 30.6 25-34 pg Mean Corpuscular Hemoglobin Concent 34.1 33.5 32-36 g/dl Platelet Count 336 296 130-400 K/uL Mean Platelet Volume 10.3 9.7 7.4-10.4 fL Neutrophils (%) (Auto) 64.4 % Lymphocytes (%) (Auto) 20.7 % Monocytes (%) (Auto) 11.5 % Eosinophils (%) (Auto) 3.0 % Basophils (%) (Auto) 0.3 % Neutrophils # (Auto) 5.00 1.4-6.5 K/uL Lymphocytes # (Auto) 1.61 1.2-3.4 K/uL Monocytes # (Auto) 0.89 0.11-0.59 K/uL Eosinophils # (Auto) 0.23 0-0.5 K/uL Basophils # (Auto) 0.02 0-0.2 K/uL RDW Standard Deviation 42.9 43.3 36.4-46.3 fL RDW Coefficient of Variation 12.9 12.9 11.5-14.5 % Immature Granulocyte % (Auto) 0.1 % Immature Granulocyte # (Auto) 0.01 0.00-0.02 K/uL Sodium Level 141 141 136-145 mmol/L Potassium Level 3.8 4.1 3.5-5.1 mmol/L Chloride Level 104 106 98-107 mmol/L Carbon Dioxide Level 26 28 21-32 mmol/L Anion Gap 11.0 7.0 3-11 mmol/L Blood Urea Nitrogen 8 8 7-18 mg/dl Creatinine 0.71 0.71 0.60-1.20 mg/dl Est Creatinine Clear Calc Drug Dose 143.1 143.1 ml/min Estimated GFR () 127.9 127.9 Estimated GFR (Non- 110.4 110.4 BUN/Creatinine Ratio 11.9 11.1 10-20 Random Glucose 89 102 70-99 mg/dl Calcium Level 8.8 8.6 8.5-10.1 mg/dl Total Bilirubin 0.5 0.6 0.2-1 mg/dl Direct Bilirubin 0.1 0.1 0-0.2 mg/dl Aspartate Amino Transf (AST/SGOT) 40 35 15-37 U/L Alanine Aminotransferase (ALT/SGPT) 64 56 12-78 U/L Alkaline Phosphatase 58 51 45-117 U/L Total Protein 7.0 6.1 6.4-8.2 gm/dl Albumin 3.6 3.1 3.4-5.0 gm/dl Lipase 152 73-393 U/L Human Chorionic Gonadotropin, Qual NEG NEG Urine Color YELLOW Urine Appearance CLEAR CLEAR Urine pH 5.0 4.5-7.5 Urine Specific [place] 1.012 1.000-1.030 Urine Protein NEG NEG Urine Glucose (UA) NEG NEG Urine Ketones NEG NEG Urine Occult Blood TRACE NEG Urine Nitrite NEG NEG Urine Bilirubin NEG NEG Urine Urobilinogen NEG NEG Urine Leukocyte Esterase NEG NEG Urine WBC (Auto) 1-5 0-5 /hpf Urine RBC (Auto) 5-10 0-4 /hpf Urine Hyaline Casts (Auto) 1-5 0-5 /lpf Urine Epithelial Cells (Auto) 20-30 0-5 /lpf Urine Bacteria (Auto) 1+ NEG Globulin 3.0 2.5-4.0 gm/dl Albumin/Globulin Ratio 1.0 0.9-2 Assessment & Plan 06/26/16- pt is for lap jessika later today- possible d/c tomorrow depending on progress
[2016-06-26] MEDS ORDERED: FENTANYL CITRATE INJ 50 MCG/1 ML 2 ML VIAL ONE ×2 (08:43→09:30)
[2016-06-26] MEDS ORDERED: MIDAZOLAM HCL 1 MG/ML 2ML VIAL ONE (08:43)
[2016-06-26] MEDS ORDERED: SCOPOLAMINE 1.5 MG TDSY TD ONE (08:50)
[2016-06-26] MEDS ORDERED: BUPIVACAINE 0.5 % 5 MG/1 ML MPF 30ML VIAL ONE (08:56)
[2016-06-26] MEDS ORDERED: DiphenhydrAMINE HCL 50 MG/ML VIAL IV PRN (09:00)
[2016-06-26] MEDS ORDERED: FENTANYL CITRATE INJ 50 MCG/1 ML 2 ML VIAL IV PRN (09:00)
[2016-06-26] MEDS ORDERED: ERGOCALCIFEROL 50,000 INTER.UNIT CAP PO SCH (09:00)
[2016-06-26] MEDS ORDERED: ONDANSETRON INJ 2 MG/ML 2 ML VIAL IV PRN ×2 (09:00→10:15)
[2016-06-26] MEDS ORDERED: KETOROLAC TROMETHAMINE 30 MG/ML VIAL IV. PRN (09:00)
[2016-06-26] MEDS: CIPROFLOXACIN / D5W 400 MG in PREMIXED IN D5W 200 ML IV SCH ×2 (09:19→20:03)
[2016-06-26] MEDS ORDERED: LACTATED RINGER'S 1000ML 1,000 ML IV PRN (09:30)
[2016-06-26] MEDS ORDERED: SUCCINYLCHOLINE CHLORIDE 20 MG/ML 10 ML VIAL IV ONE (09:37)
[2016-06-26] MEDS ORDERED: DiphenhydrAMINE HCL 50 MG/ML VIAL ONE (09:37)
[2016-06-26] MEDS ORDERED: ROCURONIUM BROMIDE 10 MG/ML 5 ML VIAL ONE (09:37)
[2016-06-26] MEDS ORDERED: METOCLOPRAMIDE HCL INJ 5 MG/ML 2 ML VIAL ONE (09:37)
[2016-06-26] MEDS ORDERED: PROPOFOL IV EMULSION 10 MG/ML 20 ML VIAL IV ONE (09:37)
[2016-06-26] MEDS ORDERED: DEXAMETHASONE SOD INJ 4 MG/ML VIAL ONE (09:37)
[2016-06-26] MEDS ORDERED: LIDOCAINE HCL 2% 2 ML VIAL (20MG/ML) ONE (09:37)
[2016-06-26] MEDS ORDERED: ONDANSETRON INJ 2 MG/ML 2 ML VIAL ONE (09:37)
[2016-06-26] MEDS ORDERED: GLYCOPYRROLATE INJ 0.2 MG/ML VIAL ONE (10:13)
[2016-06-26] MEDS ORDERED: HYDROCODONE/ACETAMOPHEN 5/325MG TAB PO PRN ×2 (10:15)
[2016-06-26] MEDS ORDERED: HYDROmorphone INJ 0.5 MG/0.5 ML SYR IV PRN (10:15)
[2016-06-26] MEDS ORDERED: PROMETHAZINE HCL INJ 25 MG in SODIUM CHLORIDE 0.9% 50ML 50 ML IV PRN (10:15)
--- NOTE | 2016-06-26 10:15 | [facility] Operative Report ---
Operative Report Operative Date Jun 26, 2016. Pre-Operative Diagnosis Biliary colic Post-Operative Diagnosis acute cholecystitis Procedure(s) Performed lap jessika Surgeon Dr Gage [facility] Navigator Surgeon(s) Wm. Sierra Estimated Blood Loss 10ML Findings distended, large gb, mild acute edema Specimens Gallbladder Anesthesia gen Complication(s) None Disposition Recovery Room / PACU I attest to the content of the Intraoperative Record and any orders documented therein. Any exceptions are noted below.
--- NOTE | 2016-06-26 10:44 | OPERATIVE REPORT ---
DATE OF OPERATION: 06/26/2016 NAME OF OPERATION: Laparoscopic cholecystectomy. PREOPERATIVE DIAGNOSIS: Biliary colic. POSTOPERATIVE DIAGNOSIS: Same with acute cholecystitis. STAFF SURGEON: Dr. Gage. CONTROL SYSTEMS DRAFTING OFFICER: Ulises Sierra PA-C. PROCEDURE: The patient was brought in the operating room and placed on the operating table in a supine position. Her abdomen was prepped and draped in usual fashion. Orogastric tube and pneumatic stockings were in place. Using 0.5% plain Marcaine, all incisions were anesthetized. Incision was made above the umbilicus, carrying dissection down through significant adipose tissue to the fascia, placing a Veress needle producing pneumoperitoneum. An 11 mm port was placed at this level and then under visualization, three 5 mm ports were placed. The gallbladder was observed. It was very distended and large. It was aspirated of bile and then dissection carried out at the francesco hepatis. There was evidence of acute edema consistent with mild acute cholecystitis. The cystic duct and cystic artery were identified and then clipped and transected. The gallbladder was then dissected away from the liver bed in the usual fashion. After appropriate hemostasis and irrigation, the gallbladder was placed into an Endobag. The Endobag was then removed through the umbilical site. I did have to open the fascia slightly larger for the gallbladder to be removed because of its size and distention. Fascia at the umbilicus closed using interrupted 0 PDS suture, subcutaneous tissue reapproximated using 2-0 plain catgut suture, then the skin at the umbilicus closed using 5-0 Prolene suture. The other sites closed using subcuticular 4-0 Monocryl and Dermabond. The patient was transferred to recovery room in stable condition. I attest to the content of the Intraoperative Record and any orders documented therein. Any exceptio ns are noted below.
[2016-06-26] MEDS ORDERED: PROMETHAZINE HCL INJ 12.5 MG in SODIUM CHLORIDE 0.9% 50ML 50 ML IV PRN (11:00)
[2016-06-26] MEDS: HYDROmorphone INJ 1 MG/ML SYR IV PRN ×2 (11:48→21:52)
[2016-06-26] MEDS: LACTATED RINGER'S 1000ML 1,000 ML IV SCH ×2 (11:49→23:58)
[2016-06-26] MEDS: DIVALPROEX 250 MG EXTENDED REL TAB PO SCH ×2 (12:04→21:12)
--- NOTE | 2016-06-26 12:18 | Anesthesiology Progress Note ---
Anesthesia Post Op Note Date & Time Jun 26, 2016 at 12:19 Vital Signs Pain Intensity: 6.0 Vital Signs Past 12 Hours Date Time Temp Pulse Resp B/P Pulse Ox O2 Delivery O2 Flow Rate FiO2 06/26/16 11:58 36.5 69 16 129/84 95 Nasal Cannula 2.0 06/26/16 11:30 142/80 06/26/16 11:10 36.6 74 16 137/78 92 Room Air 06/26/16 11:00 74 16 143/84 92 Room Air 06/26/16 10:50 85 16 147/85 92 Room Air 06/26/16 10:40 79 18 144/85 98 Mask 10 06/26/16 10:30 94 18 152/83 100 Mask 10 06/26/16 10:22 36.4 118 16 138/82 97 Mask 10 06/26/16 09:06 96 Room Air 06/26/16 07:54 37.0 64 16 136/90 96 Room Air Notes Mental Status: alert / awake / arousable, participated in evaluation Pt Amnestic to Procedure: Yes Nausea / Vomiting: adequately controlled Pain: adequately controlled Airway Patency, RR, SpO2: stable & adequate BP & HR: stable & adequate Hydration State: stable & adequate Anesthetic Complications: no major complications apparent Pt did well.
--- NOTE | 2016-06-26 13:37 | Progress Note ---
Internal Med Progress Note Date of Service: Jun 26, 2016. Provider Documentation: SUBJECTIVE: The patient was seen and examined S/P Lap Cholecystectomy Still a little drowsy from post Anesthesia No CP,SOB,Nausea and or vomiting OBJECTIVE: Vital Signs-as noted below Exam: General-no distress Eyes-normal ENT-normal Neck-supple Lungs-Clear to auscultate bilaterally Heart-Regular,no murmur Abdomen-Soft,mildly distended,Tender ,Bowel sound present Extremities-No edema Neuro-AAOx3 Lab data as noted below. ASSESSMENT & PLAN: Acute Cholecystitis RUQ pain is secondary Has been on IVF,pain medications and Antibiotic Appreciate Surgery input S/P Lap Cholecystectomy ,POD #0 ASTHMA - no signs of acute exacerbation, no wheezing on exam - only uses inhalers PRN -no acute symptoms MIGRAINES - continue Depakote DEPRESSION - continue duloxetine JENNIFER - currently being treated with Adderall -Off Adderall for the last few days DVT PROPHYLAXIS - SCDs due to upcoming surgery -start SQ heparin from AM DISPOSITION As Per Primary Vital Signs: Date Time Temp Pulse Resp B/P Pulse Ox O2 Delivery O2 Flow Rate FiO2 06/26/16 13:29 36.8 71 16 129/90 96 Nasal Cannula 2.0 06/26/16 12:26 37.0 75 16 133/83 96 Nasal Cannula 2.0 06/26/16 11:58 36.5 69 16 129/84 95 Nasal Cannula 2.0 06/26/16 11:30 Nasal Cannula 2.0 06/26/16 11:30 36.6 68 14 98 Nasal Cannula 2.0 06/26/16 11:30 142/80 06/26/16 11:10 36.6 74 16 137/78 92 Room Air 06/26/16 11:00 74 16 143/84 92 Room Air 06/26/16 10:50 85 16 147/85 92 Room Air 06/26/16 10:40 79 18 144/85 98 Mask 10 06/26/16 10:30 94 18 152/83 100 Mask 10 06/26/16 10:22 36.4 118 16 138/82 97 Mask 10 06/26/16 09:06 96 Room Air 06/26/16 07:54 37.0 64 16 136/90 96 Room Air 06/26/16 00:00 Room Air 06/25/16 22:50 36.7 67 15 130/75 96 Room Air 06/25/16 19:20 93 Room Air 06/25/16 19:20 37.0 96 14 122/80 93 Room Air 06/25/16 19:20 37.0 96 14 122/80 93 Room Air 06/25/16 18:43 75 20 127/66 93 Room Air 06/25/16 17:32 75 20 119/68 94 Room Air 06/25/16 16:06 104 20 107/66 98 Room Air 06/25/16 15:01 77 18 104/63 94 Room Air Lab Results: Results Past 24 Hours Test 06/26/16 05:16 Range/Units White Blood Count 7.40 4.8-10.8 K/uL Red Blood Count 4.34 4.2-5.4 M/uL Hemoglobin 13.3 12.0-16.0 g/dL Hematocrit 39.7 37-47 % Mean Corpuscular Volume 91.5 80-100 fL Mean Corpuscular Hemoglobin 30.6 25-34 pg Mean Corpuscular Hemoglobin Concent 33.5 32-36 g/dl RDW Standard Deviation 43.3 36.4-46.3 fL RDW Coefficient of Variation 12.9 11.5-14.5 % Platelet Count 296 130-400 K/uL Mean Platelet Volume 9.7 7.4-10.4 fL Sodium Level 141 136-145 mmol/L Potassium Level 4.1 3.5-5.1 mmol/L Chloride Level 106 98-107 mmol/L Carbon Dioxide Level 28 21-32 mmol/L Anion Gap 7.0 3-11 mmol/L Blood Urea Nitrogen 8 7-18 mg/dl Creatinine 0.71 0.60-1.20 mg/dl Est Creatinine Clear Calc Drug Dose 143.1 ml/min Estimated GFR () 127.9 Estimated GFR (Non- 110.4 BUN/Creatinine Ratio 11.1 10-20 Random Glucose 102 70-99 mg/dl Calcium Level 8.6 8.5-10.1 mg/dl Total Bilirubin 0.6 0.2-1 mg/dl Direct Bilirubin 0.1 0-0.2 mg/dl Aspartate Amino Transf (AST/SGOT) 35 15-37 U/L Alanine Aminotransferase (ALT/SGPT) 56 12-78 U/L Alkaline Phosphatase 51 45-117 U/L Total Protein 6.1 6.4-8.2 gm/dl Albumin 3.1 3.4-5.0 gm/dl Globulin 3.0 2.5-4.0 gm/dl Albumin/Globulin Ratio 1.0 0.9-2
[2016-06-26] MEDS: PANTOprazole SOD 40 MG TAB PO SCH (13:38)
[2016-06-26] MEDS: CETIRIZINE HCL 10 MG TAB PO SCH (13:38)
[2016-06-26] MEDS: DULOXETINE (CYMBALTA) 30 MG CAP PO SCH ×2 (13:38→21:16)
[2016-06-26] MEDS: KETOROLAC TROMETHAMINE 30 MG/ML VIAL IV. SCH ×2 (15:46→21:47)
[2016-06-27] MEDS: KETOROLAC TROMETHAMINE 30 MG/ML VIAL IV. SCH ×4 (02:56→20:59)
[2016-06-27] MEDS: HYDROCODONE/ACETAMOPHEN 5/325MG TAB PO PRN ×2 (02:57→11:55)
[2016-06-27 04:19] VITALS: BP 106/66; PULSE 78; TEMP 36.9; O2SAT 90
[2016-06-27 05:59] LABS: HEMATOCRIT 37.8 % (37-47); MEAN CELL VOLUME 91.5 fL (80-100); MEAN CORPUSCULAR HEMOGLOBIN 31.2 pg (25-34); MEAN CORPUSCULAR HGB CONC 34.1 g/dl (32-36); MEAN PLATELET VOLUME 10.2 fL (7.4-10.4); PLATELET COUNT 305 K/uL (130-400); RED BLOOD COUNT 4.13 M/uL (4.2-5.4)
[2016-06-27] MEDS: LACTATED RINGER'S 1000ML 1,000 ML IV SCH (06:02)
[2016-06-27 06:26] LABS: ALT/SGPT 55 U/L (12-78); AST/SGOT 31 U/L (15-37); BLOOD UREA NITROGEN 6 mg/dl (7-18); BUN/CREATININE RATIO 7.1 (10-20); CALCIUM 8.8 mg/dl (8.5-10.1); CARBON DIOXIDE 27 mmol/L (21-32); CHLORIDE 106 mmol/L (98-107); CREATININE 0.83 mg/dl (0.60-1.20); GLUCOSE 114 mg/dl (70-99); POTASSIUM 4.2 mmol/L (3.5-5.1); SODIUM 141 mmol/L (136-145)
[2016-06-27 06:31] LABS: ALB/GLOB RATIO 0.9 (0.9-2); ALKALINE PHOSPHATASE 48 U/L (45-117)
[2016-06-27] MEDS ORDERED: CIPR-255 PO (07:18)
[2016-06-27] MEDS ORDERED: HYDR-5688 PO (07:18)
--- NOTE | 2016-06-27 07:21 | Discharge Instructions ---
Discharge Instructions Admission Reason for Admission: Right Upper Quadrant Abdominal Pain Discharge Discharge Diagnosis / Problem: cholecystitis, biliary colic Discharge Goals Goal(s): Decrease discomfort, Improve function, Improve disease control Activity Recommendations Activity Limitations: as noted below Lifting Limitations: no more than 10 pounds Exercise/Sports Limitations: until after follow-up appointment May Resume Sexual Activity: when tolerated Shower/Bathe: tomorrow Driving or Machine Use: resume 3 days after discharge . Instructions / Follow-Up Instructions / Follow-Up SPECIAL CARE INSTRUCTIONS: * Cover incisions and change daily for comfort/drainage. * may leave uncovered with dermabond * May use ibuprofen for pain as tolerated. * Expect some swelling and bruising. Call your doctor if: * Temperature above 101 degrees * Pain not relieved by pain medicine ordered * There is increased drainage or redness from any incision * You have any unanswered questions or concerns [phone]. FOLLOW UP VISIT: If not already scheduled, please call the office for a follow-up visit. for next week- some suture removal OFFICE PHONE NUMBER: Dr. Gage Office Current Hospital Diet Patient's current hospital diet: Regular Diet Discharge Diet Recommended Diet: Regular Diet Procedures Procedures Performed: Laproscopic Cholecystectomy Pending Studies Studies pending at discharge: no Medical Emergencies . Who to Call and When: Medical Emergencies: If at any time you feel your situation is an emergency, please call 911 immediately. . Non-Emergent Contact Non-Emergency issues call your: Primary Care Provider, Surgeon . "Provider Documentation" section prepared by Wesley Gage. VTE Core Measure Inpt VTE Proph given/why not?: Unfractionated heparin SQ, SCD's
--- NOTE | 2016-06-27 07:25 | Surgery Progress Note ---
Surgery Progress Note Date of Service Jun 27, 2016. Subjective Post OP Day: 1 + nausea, No vomiting some abd pain, awake , alert cbc, LFTs look good, good UO Objective Vital Signs: Date Time Temp Pulse Resp B/P Pulse Ox O2 Delivery O2 Flow Rate FiO2 06/27/16 04:19 36.9 78 15 106/66 90 Room Air 06/26/16 23:40 Room Air 06/26/16 23:11 97 Nasal Cannula 2.0 06/26/16 23:07 37.2 92 16 132/83 91 Room Air 06/26/16 21:29 37.0 84 16 100/63 94 Room Air 06/26/16 15:45 Room Air 06/26/16 15:35 36.7 67 16 125/82 93 Room Air 06/26/16 14:30 36.8 87 16 138/83 96 2.0 06/26/16 13:29 36.8 71 16 129/90 96 Nasal Cannula 2.0 06/26/16 12:26 37.0 75 16 133/83 96 Nasal Cannula 2.0 06/26/16 11:58 36.5 69 16 129/84 95 Nasal Cannula 2.0 06/26/16 11:30 Nasal Cannula 2.0 06/26/16 11:30 Nasal Cannula 2.0 06/26/16 11:30 36.6 68 14 98 Nasal Cannula 2.0 06/26/16 11:30 142/80 06/26/16 11:10 36.6 74 16 137/78 92 Room Air 06/26/16 11:00 74 16 143/84 92 Room Air 06/26/16 10:50 85 16 147/85 92 Room Air 06/26/16 10:40 79 18 144/85 98 Mask 10 06/26/16 10:30 94 18 152/83 100 Mask 10 06/26/16 10:22 36.4 118 16 138/82 97 Mask 10 06/26/16 09:06 96 Room Air 06/26/16 07:54 37.0 64 16 136/90 96 Room Air General Appearance: no apparent distress Respiratory/Chest: no respiratory distress Abdomen: soft (incisional tenderness) Laboratory Results: Results Past 24 Hours Test 06/27/16 05:23 Range/Units White Blood Count 13.00 4.8-10.8 K/uL Red Blood Count 4.13 4.2-5.4 M/uL Hemoglobin 12.9 12.0-16.0 g/dL Hematocrit 37.8 37-47 % Mean Corpuscular Volume 91.5 80-100 fL Mean Corpuscular Hemoglobin 31.2 25-34 pg Mean Corpuscular Hemoglobin Concent 34.1 32-36 g/dl RDW Standard Deviation 43.0 36.4-46.3 fL RDW Coefficient of Variation 13.0 11.5-14.5 % Platelet Count 305 130-400 K/uL Mean Platelet Volume 10.2 7.4-10.4 fL Sodium Level 141 136-145 mmol/L Potassium Level 4.2 3.5-5.1 mmol/L Chloride Level 106 98-107 mmol/L Carbon Dioxide Level 27 21-32 mmol/L Anion Gap 8.0 3-11 mmol/L Blood Urea Nitrogen 6 7-18 mg/dl Creatinine 0.83 0.60-1.20 mg/dl Est Creatinine Clear Calc Drug Dose 122.4 ml/min Estimated GFR () 105.9 Estimated GFR (Non- 91.4 BUN/Creatinine Ratio 7.1 10-20 Random Glucose 114 70-99 mg/dl Calcium Level 8.8 8.5-10.1 mg/dl Total Bilirubin 0.3 0.2-1 mg/dl Direct Bilirubin < 0.1 0-0.2 mg/dl Aspartate Amino Transf (AST/SGOT) 31 15-37 U/L Alanine Aminotransferase (ALT/SGPT) 55 12-78 U/L Alkaline Phosphatase 48 45-117 U/L Total Protein 6.2 6.4-8.2 gm/dl Albumin 3.0 3.4-5.0 gm/dl Globulin 3.2 2.5-4.0 gm/dl Albumin/Globulin Ratio 0.9 0.9-2 Assessment & Plan 06/27/16- s/p lap jessika- very distended gb, mild acute inflammation- cont IV/atbx meds for pain control- may need one more day in hospital 06/26/16- pt is for lap jessika later today- possible d/c tomorrow depending on progress 06/26/16- pt is for lap jessika later today- possible d/c tomorrow depending on progress
[2016-06-27 08:09] VITALS: BP 97/59; PULSE 66; TEMP 37; O2SAT 93
[2016-06-27] MEDS: CIPROFLOXACIN / D5W 400 MG in PREMIXED IN D5W 200 ML IV SCH ×2 (08:40→20:57)
[2016-06-27] MEDS: PANTOprazole SOD 40 MG TAB PO SCH (08:40)
[2016-06-27 08:41] LABS: PROTHROMBIN TIME (PATIENT) 11.2 SECONDS (9.0-12.0)
[2016-06-27] MEDS: DIVALPROEX 250 MG EXTENDED REL TAB PO SCH ×2 (08:41→20:58)
[2016-06-27] MEDS: CETIRIZINE HCL 10 MG TAB PO SCH (08:41)
[2016-06-27] MEDS: DULOXETINE (CYMBALTA) 30 MG CAP PO SCH (11:36)
[2016-06-27] MEDS: HEPARIN SOD 5000 UNIT/0.5 ML CARP SQ SCH ×2 (11:45→21:02)
[2016-06-27 13:27] VITALS: BP 100/63; PULSE 92; TEMP 36.8; O2SAT 97
[2016-06-27 15:15] VITALS: BP 115/73; PULSE 69; TEMP 36.5; O2SAT 97
--- NOTE | 2016-06-27 16:27 | Progress Note ---
Internal Med Progress Note Date of Service: Jun 27, 2016. Provider Documentation: SUBJECTIVE: The patient was seen and examined S/P Lap Cholecystectomy Has significant pain Not yet ready to be discharged OBJECTIVE: Vital Signs-as noted below Exam: General-no distress Eyes-normal ENT-normal Neck-supple Lungs-Clear to auscultate bilaterally Heart-Regular,no murmur Abdomen-Soft,mildly distended,Tender ,Bowel sound present Extremities-No edema Neuro-AAOx3 Lab data as noted below. ASSESSMENT & PLAN: Acute Cholecystitis RUQ pain is secondary Has been on IVF,pain medications and Antibiotic Appreciate Surgery input S/P Lap Cholecystectomy ,POD #1 Not yet ready to be discharged Tolerating diet Likely home tomorrow ASTHMA - no signs of acute exacerbation, no wheezing on exam - only uses inhalers PRN -no acute symptoms MIGRAINES - continue Depakote DEPRESSION - continue duloxetine JENNIFER - currently being treated with Adderall -Off Adderall for the last few days DVT PROPHYLAXIS - SCDs due to upcoming surgery -start SQ heparin from AM DISPOSITION As Per Primary Vital Signs: Date Time Temp Pulse Resp B/P Pulse Ox O2 Delivery O2 Flow Rate FiO2 06/27/16 15:15 36.5 69 16 115/73 97 Room Air 06/27/16 13:27 36.8 92 16 100/63 97 2.0 06/27/16 08:30 Room Air 06/27/16 08:09 37.0 66 16 97/59 93 Room Air 06/27/16 04:19 36.9 78 15 106/66 90 Room Air 06/26/16 23:40 Room Air 06/26/16 23:11 97 Nasal Cannula 2.0 06/26/16 23:07 37.2 92 16 132/83 91 Room Air 06/26/16 21:29 37.0 84 16 100/63 94 Room Air Lab Results: Results Past 24 Hours Test 06/27/16 05:23 06/27/16 08:22 Range/Units White Blood Count 13.00 4.8-10.8 K/uL Red Blood Count 4.13 4.2-5.4 M/uL Hemoglobin 12.9 12.0-16.0 g/dL Hematocrit 37.8 37-47 % Mean Corpuscular Volume 91.5 80-100 fL Mean Corpuscular Hemoglobin 31.2 25-34 pg Mean Corpuscular Hemoglobin Concent 34.1 32-36 g/dl RDW Standard Deviation 43.0 36.4-46.3 fL RDW Coefficient of Variation 13.0 11.5-14.5 % Platelet Count 305 130-400 K/uL Mean Platelet Volume 10.2 7.4-10.4 fL Sodium Level 141 136-145 mmol/L Potassium Level 4.2 3.5-5.1 mmol/L Chloride Level 106 98-107 mmol/L Carbon Dioxide Level 27 21-32 mmol/L Anion Gap 8.0 3-11 mmol/L Blood Urea Nitrogen 6 7-18 mg/dl Creatinine 0.83 0.60-1.20 mg/dl Est Creatinine Clear Calc Drug Dose 122.4 ml/min Estimated GFR () 105.9 Estimated GFR (Non- 91.4 BUN/Creatinine Ratio 7.1 10-20 Random Glucose 114 70-99 mg/dl Calcium Level 8.8 8.5-10.1 mg/dl Total Bilirubin 0.3 0.2-1 mg/dl Direct Bilirubin < 0.1 0-0.2 mg/dl Aspartate Amino Transf (AST/SGOT) 31 15-37 U/L Alanine Aminotransferase (ALT/SGPT) 55 12-78 U/L Alkaline Phosphatase 48 45-117 U/L Total Protein 6.2 6.4-8.2 gm/dl Albumin 3.0 3.4-5.0 gm/dl Globulin 3.2 2.5-4.0 gm/dl Albumin/Globulin Ratio 0.9 0.9-2 Prothrombin Time 11.2 9.0-12.0 SECONDS Prothromb Time International Ratio 1.0 0.9-1.1
[2016-06-27 23:30] VITALS: BP 117/74; PULSE 80; TEMP 36.9; O2SAT 96
[2016-06-28] MEDS: HYDROCODONE/ACETAMOPHEN 5/325MG TAB PO PRN ×2 (00:01→10:50)
[2016-06-28] MEDS: LACTATED RINGER'S 1000ML 1,000 ML IV SCH (04:26)
[2016-06-28] MEDS: KETOROLAC TROMETHAMINE 30 MG/ML VIAL IV. SCH ×2 (04:27→09:47)
--- NOTE | 2016-06-28 07:26 | DISCHARGE SUMMARY ---
PRINCIPAL DIAGNOSIS: Acute cholecystitis. PROCEDURES: The patient underwent laparoscopic cholecystectomy. HISTORY OF PRESENT ILLNESS: The patient is a 35-year-old female who has been having right upper quadrant abdominal pain over some time, which is now worsened presenting to the Emergency Room and being admitted to the hospital with this pain suspected of possible biliary colic and acute cholecystitis. HOSPITAL COURSE: The patient was brought into the hospital on 06/25/2016. She was taken to the operating room on 06/26/2016 where she underwent laparoscopic cholecystectomy showing a very distended gallbladder. The patient tolerated the procedure very well and has progressed well and is felt stable for discharge home today to be followed in the surgical clinic next week.
[2016-06-28 07:27] VITALS: BP 114/74; PULSE 61; TEMP 36.9; O2SAT 95
[2016-06-28 07:33] VITALS: O2SAT 95
[2016-06-28] MEDS: DULOXETINE (CYMBALTA) 30 MG CAP PO SCH (08:10)
[2016-06-28] MEDS: PANTOprazole SOD 40 MG TAB PO SCH (08:10)
[2016-06-28] MEDS: CETIRIZINE HCL 10 MG TAB PO SCH (08:10)
[2016-06-28] MEDS: HEPARIN SOD 5000 UNIT/0.5 ML CARP SQ SCH (08:10)
[2016-06-28] MEDS: DIVALPROEX 250 MG EXTENDED REL TAB PO SCH (08:10)
[2016-06-28 09:54] VITALS: BP 114/74; PULSE 61; TEMP 36.9; O2SAT 95
[2016-07-22] MEDS ORDERED: TRAM-10 PO (13:37)
[2016-07-22] MEDS ORDERED: VITAMIN B2 PO (13:37)
[2016-07-22] MEDS ORDERED: DICY10CA55 PO (13:37)
[2016-07-22] MEDS ORDERED: PANT1TAB48 PO (13:37)
== END 2016-06-28 11:25 | disposition home or self-care (01) | DRG 418 ==
LOC: ENRESERVDT → ENRESERVTM → C.EDB 11:01 → C.MSN 16:57
PROVIDERS: ADMIT Surgery; ATTEND Surgery
PROC: 0FT44ZZ Resection of Gallbladder, Percutaneous Endoscopic Approach (ICD-10-PCS; principal; 2016-06-26 07:45)
DX: K81.0 Acute cholecystitis (principal); Z68.42 Body mass index [BMI] 45.0-49.9, adult; K82.8 Other specified diseases of gallbladder; J45.909 Unspecified asthma, uncomplicated; K21.9 Gastro-esophageal reflux disease without esophagitis; G43.909 Migraine, unspecified, not intractable, without status migrainosus; G47.33 Obstructive sleep apnea (adult) (pediatric); F32.9 Major depressive disorder, single episode, unspecified; E66.9 Obesity, unspecified; Z87.01 Personal history of pneumonia (recurrent); Z87.891 Personal history of nicotine dependence; Z79.3 Long term (current) use of hormonal contraceptives; Z79.899 Other long term (current) drug therapy

== ENCOUNTER → 2016-08-01 | Day surgery (SDC) | payer OTHER ==
[2016-07-22 13:39] VITALS: Ht 161.3 cm; Wt 125.9 kg
[~2016-08-01] VITALS: Ht 161.3 cm; Wt 125.9 kg
[~2016-08-01] MED LIST changes: +AMPH20TA2 PO; +DICY10CA55 PO; +DIVA250T PO; +KETO10TA PO; -MODA1TAB5 PO; +ONDA4TAB65 PO; +PANT1TAB48 PO; +PROP10TA7 PO; +RIZA10TA19 PO; +TRAM-10 PO; +VITAMIN B2 PO
[2016-08-01 12:05] VITALS: BP 120/77; PULSE 77; TEMP 36.7; O2SAT 95
--- NOTE | 2016-08-02 10:02 | Progress Note ---
Progress Note Date of Service Aug 02, 2016. Progress Note Results of HBT: Pt had no change in hydrogen levels at 60, 120, or 180 mins compared to baseline. No evidence of lactose intolerance. Of note, pt reported burning during exam.
== END | disposition home or self-care (01) ==
LOC: C.GI 08:24
PROVIDERS: ATTEND Internal Medicine Gastroenterology
DX: K21.9 Gastro-esophageal reflux disease without esophagitis (principal)

== ENCOUNTER 2016-08-15 14:03 | Emergency (ER) | payer OTHER ==
[~2016-08-15] VITALS: Ht 160 cm; Wt 126.0 kg
[~2016-08-15 14:03] MED LIST changes: -VITAMIN B2 PO
[2016-08-15 14:08] VITALS: TEMP 36.4; Ht 160 cm; Wt 126.0 kg
[2016-08-15] MEDS ORDERED: KETOROLAC TROMETHAMINE 30 MG/ML VIAL IV STA (15:24)
[2016-08-15] MEDS ORDERED: DiphenhydrAMINE HCL 50 MG/ML VIAL IV STA (15:24)
[2016-08-15] MEDS ORDERED: MoRPHine SULFATE 4 MG/ML 1 ML CARP\\VIAL IV STA (15:24)
[2016-08-15] MEDS ORDERED: SODIUM CHLORIDE 0.9% 1000ML 1,000 ML IV STA (15:24)
[2016-08-15] MEDS ORDERED: ONDANSETRON INJ 2 MG/ML 2 ML VIAL ONE (15:59)
[2016-08-15] MEDS ORDERED: ONDANSETRON INJ 2 MG/ML 2 ML VIAL IV STA (16:02)
[2016-08-15 17:07] VITALS: BP 141/92; PULSE 74; O2SAT 99
--- NOTE | 2016-08-15 22:42 | EMERGENCY ROOM VISIT NOTE ---
History Report prepared by Francois: Syd Carmen Under the Supervision of: Dr. Benny Quispe D.O. First contact with patient: 15:16 Chief Complaint: HEADACHE Stated Complaint: MIGRAINE, UPSET STOMACH History of Present Illness The patient is a 36 year old female who presents to the Emergency Room with complaints of a gradually worsening migraine headache that started at 1700 yesterday. The pain is diffuse but is worse in the back of her head. The patient also complains of photophobia and nausea. She has not had any relief from Tramadol or Ibuprofen. She is also slightly dizzy, which she experiences about half of the time she has migraines. The patient has a migraine every week. She follows up with Dr. Noel. Patient denies change in vision, fevers, sore throat, cough, rhinorrhea, chest pain, shortness of breath, vomiting, diarrhea, pain with urination, melena, weakness or numbness. She does have some left ear discomfort. The patient is s/p cholecystectomy 7 weeks ago. Source of History: patient Onset: 1700 yesterday Position: head Quality: other (migraine) Timing: worsening Associated Symptoms: + nausea, No SOB, No chest pain, No cough, No diarrhea , No fevers, No melena, No sorethroat, No urinary symptoms, No vomiting, No weakness Review of Systems See HPI for pertinent positives & negatives. A total of 10 systems reviewed and were otherwise negative. Past Medical & Surgical Medical Problems: (1) Asthma, mild persistent (2) Depression (3) GERD (gastroesophageal reflux disease) (4) Migraine Surgical Problems: (1) H/O exploratory laparotomy (2) History of carpal tunnel surgery (3) S/P surgical manipulation of ankle joint Family History FH: breast cancer MOTHER Social History Smoking Status: Never Smoker Alcohol Use: occasionally Current/Historical Medications Scheduled Amphetamine-Dextroamphetamine 20MG (Adderall 20MG), 20 MG PO BID Cetirizine (Zyrtec), 10 MG PO QAM Dicyclomine Hcl (Bentyl), 10 MG PO QID Divalproex Sodium (Depakote Er), 1 TAB PO BID Duloxetine HCl (Cymbalta), 30 MG PO QAM Ergocalciferol (Vitamin D), 50,000 UNIT PO 2XWK Ethinyl Estrad/Norgestimate (Sprintec 28), 1 TAB PO HS Magnesium Oxide (Mag-Ox), 400 MG PO HS Pantoprazole (Protonix), 40 MG PO BID Riboflavin (Vitamin B-2), 100 MG PO QAM Scheduled PRN Albuterol Hfa (Ventolin Hfa), 2 PUFFS INH QID PRN for SOB/Wheezing Zxoqmhi-Hptkykyoifgiv-Acttuutz (Excedrin Migraine), 2 TABS PO Q6H PRN for Migraine Ketorolac (Toradol), 10 MG PO QID PRN for Pain Lorazepam (Ativan), 1 MG PO HS PRN for Anxiety Ondansetron Hcl (Zofran), 1 TAB PO TID PRN for Nausea Propranolol Hcl (Inderal), 1 TAB PO BID PRN for Migraine Rizatriptan Benzoate (Maxalt-Project Inspector), 10 MG PO for Migraine Tramadol (Ultram), 50 MG PO Q4H PRN for Migraine Allergies Coded Allergies: Sulfa Antibiotics (Verified Allergy, Severe, HIVES, 08/01/16) Amoxicillin (Verified Allergy, Intermediate, HIVES, 08/01/16) Clavulanic Acid (Verified Allergy, Intermediate, HIVES, 08/01/16) Lactose (Verified Allergy, Intermediate, DIARRHEA, 08/01/16) Silver Sulfadiazine (Verified Allergy, Intermediate, HIVES, 08/01/16) Latex (Verified Allergy, Mild, REDNESS, 08/01/16) Cephalexin (Verified Allergy, Unknown, HIVES, 08/01/16) Physical Exam Vital Signs Date Time Temp Pulse Resp B/P Pulse Ox O2 Delivery O2 Flow Rate FiO2 08/15/16 17:07 74 16 141/92 99 08/15/16 16:04 73 18 115/75 100 Room Air 08/15/16 14:08 36.4 83 16 170/108 98 Physical Exam GENERAL: Sitting up in bed, alert, well appearing, well nourished, no distress, non-toxic EYE EXAM: normal conjunctiva, PERRL and EOM's intact OROPHARYNX: no exudate, no erythema, lips, buccal mucosa, and tongue normal and mucous membranes are moist NECK: supple, no nuchal rigidity, no adenopathy, non-tender LUNGS: Clear to auscultation. Normal chest wall mechanics HEART: no murmurs, S1 normal and S2 normal ABDOMEN: abdomen soft, non-tender, normo-active bowel sounds, no masses, no rebound or guarding. BACK: Back is symmetrical on inspection and there is no deformity, no midline tenderness, no CVA tenderness. SKIN: no rashes and no bruising UPPER EXTREMITIES: upper extremities are grossly normal. LOWER EXTREMITIES: No pitting edema. NEURO EXAM: Normal sensorium, cranial nerves II-XII intact, normal speech, no weakness of arms, no weakness of legs. No drift. Finger to nose intact. Gross sensation intact. Rapid alternating movements of upper extremities are intact. Medical Decision & Procedures Medications Administered Medications (Trade) Dose Ordered Sig/Paco Route Start Time Stop Time Status Last Admin Dose Admin Sodium Chloride (Nss 1000ml) 1,000 ml @ 999 mls/hr Q1H1M STAT IV 08/15/16 15:24 08/15/16 16:24 DC 08/15/16 15:24 999 MLS/HR Diphenhydramine HCl (Benadryl Inj) 50 mg NOW STAT IV 08/15/16 15:24 08/15/16 15:25 DC 08/15/16 15:59 50 MG Ketorolac Tromethamine (Toradol Inj) 30 mg NOW STAT IV 08/15/16 15:24 08/15/16 15:25 DC 08/15/16 16:00 30 MG Morphine Sulfate (MoRPHine SULFATE INJ) 4 mg NOW STAT IV 08/15/16 15:24 08/15/16 15:25 DC 08/15/16 16:02 4 MG Ondansetron HCl (Zofran Inj) 4 mg STK-MED ONCE .ROUTE 08/15/16 15:59 08/15/16 16:00 DC 08/15/16 15:58 4 MG ED Course ED COURSE: Vital signs were reviewed and showed hypertension. The patients medical record was reviewed The above diagnostic studies were performed and reviewed. ED treatments and interventions as stated above. 1517: The patient was evaluated in room C6. A complete history and physical examination was performed. 1524: Morphine Sulfate 4 mg IV, Toradol 30 mg IV, Benadryl 50 mg IV, NSS 1000 ml @ 999 mls/hr. 1602: Zofran 4 mg IV. 1636: The patient is feeling better. She will be discharged. 1640: Upon reevaluation, the patient is feeling better.I discussed my findings with the patient and she understands and agrees with the treatment plan. Based on the patients age, coexisting illnesses, exam and lab findings the decision to treat as an outpatient was made. The patient remained stable while under my care. The patient appeared well at the time of discharge. Medical Decision Differential Diagnosis includes but is not limited to headache, tension headache , cluster headache, migraine, subarachnoid hemorrhage, meningitis, mass, central venous thrombus, concussion, trauma and epidural/subdural hemorrhage. Patient is a 36-year-old female who presents the ER for headache which started around 5 PM yesterday. She has a history of migraines and notes that this feels exactly same. No fevers. She does admit to nausea, photophobia and noise bothering her. She denies any weakness or numbness. Completely neurologically intact. No signs of meningitis or encephalitis on exam. Patient was given an IV morphine, Benadryl and Toradol along with a bolus normal saline. She felt slightly better. She is discharged neurologically intact follow with her primary care doctor. Of note the headache came on gradually and progressively worsened. It does feel like her previous headaches which she gets weekly. There is no signs of a bleed in her history or on exam. Discussed with Pt concerning signs and symptoms to watch out for. Pt was instructed to follow up with their PCP and discussed with the patient their option to return to the ED at anytime for persistent or worsening symptoms. The appropriate anticipatory guidance and out-patient management, including indications for return to the emergency department, were explained at length to the patient and understood. Impression Primary Impression: Headache Scribe Attestation The scribe's documentation has been prepared under my direction and personally reviewed by me in its entirety. I confirm that the note above accurately reflects all work, treatment, procedures, and medical decision making performed by me. Departure Information Dispostion Home / Self-Care Referrals Dian Parker D.O. (PCP) Forms HOME CARE DOCUMENTATION FORM, IMPORTANT VISIT INFORMATION Patient Instructions Headache Pain, [facility] Additional Instructions Please follow up with your primary care doctor with in the next 24 hours. Any worsening of your symptoms, please return to the ED immediately. This includes fevers greater than 100.4, any new change in her headache, change in vision, weakness of her arms or legs, or any other concerning signs or symptoms from your standpoint. Please do not drive, drink alcohol or operate heavy machinery for the next 8-12 hours. Problem Qualifiers Primary Impression: Headache Headache type: unspecified Headache chronicity pattern: acute headache Intractability: not intractable Qualified Codes: R51 - Headache
== END 2016-08-15 17:07 | disposition home or self-care (01) ==
LOC: C.EDB 14:04 → C.EDC 17:07
DX: R51 Headache (principal); F32.9 Major depressive disorder, single episode, unspecified; K21.9 Gastro-esophageal reflux disease without esophagitis; J45.909 Unspecified asthma, uncomplicated; Z98.890 Other specified postprocedural states; Z79.899 Other long term (current) drug therapy; Z88.1 Allergy status to other antibiotic agents; Z88.2 Allergy status to sulfonamides; Z91.011 Allergy to milk products; Z91.040 Latex allergy status; Z80.3 Family history of malignant neoplasm of breast

== ENCOUNTER → 2016-11-18 | Outpatient (CLI) | payer OTHER | END | disposition home or self-care (01) | LOC: C.PAPS 12:21 | PROVIDERS: ATTEND Obstetrics & Gynecology | DX: Z12.4 Encounter for screening for malignant neoplasm of cervix (principal) ==

== ENCOUNTER 2017-05-05 08:31 | Emergency (ER) | payer OTHER ==
[~2017-05-05] VITALS: Ht 162.6 cm; Wt 123.0 kg
[~2017-05-05 08:31] MED LIST changes: +PANT1TAB3 PO; -PANT1TAB48 PO
[2017-05-05 08:33] VITALS: TEMP 36.7; Ht 162.6 cm; Wt 123.0 kg
[2017-05-05] MEDS ORDERED: SODIUM CHLORIDE 0.9% 1000ML 1,000 ML IV STA (08:56)
[2017-05-05] MEDS ORDERED: METOCLOPRAMIDE HCL INJ 5 MG/ML 2 ML VIAL IV STA (08:56)
[2017-05-05] MEDS ORDERED: DiphenhydrAMINE HCL 50 MG/ML VIAL IV STA (08:56)
[2017-05-05] MEDS ORDERED: KETOROLAC TROMETHAMINE 30 MG/ML VIAL IV STA (08:56)
[2017-05-05] MEDS ORDERED: ERGO500037 PO (09:59)
--- NOTE | 2017-05-05 10:38 | EMERGENCY ROOM VISIT NOTE ---
History First contact with patient: 08:46 Chief Complaint: HEADACHE Stated Complaint: MIGRAINE History of Present Illness The patient is a 36 year old female who presents to the Emergency Room with complaints of severe headache for the past 2 days. She reports gradual onset of a generalized headache, throbbing and pounding in nature, involving the entire head, worse with exposure to light and sound, better with rest in a dark room, currently rates as 9/10. She took ibuprofen and Excedrin yesterday with no improvement. Today she took Maxalt and Zofran, again her symptoms have not improved. She reports associated nausea, sensitivity to light and sound, but no vomiting. She also reports sinus congestion and bilateral ear fullness for the past several days, which she saw her PCP for, and was told it was most likely viral. Dr. Noel is her neurologist, and he has referred her to pain management for her migraines, as these are chronic and not well controlled. She denies any vision changes, neck pain or stiffness, confusion or memory problems, speech problems, difficulty walking, numbness or weakness of extremities, chest pain, shortness of breath, abdominal pain, diarrhea, urinary symptoms, or rash. Review of Systems A complete 10 point review of systems was reviewed with the patient with pertinent positives and negatives as per history of present illness. All else were negative. Past Medical/Surgical History Medical Problems: (1) Asthma, mild persistent (2) Depression (3) GERD (gastroesophageal reflux disease) (4) Migraine Surgical Problems: (1) H/O exploratory laparotomy (2) History of carpal tunnel surgery (3) S/P surgical manipulation of ankle joint Family History FH: breast cancer MOTHER Social History Smoking Status: Former Smoker Alcohol Use: occasionally Current/Historical Medications Scheduled Amphetamine-Dextroamphetamine 20MG (Adderall 20MG), 20 MG PO BID Cetirizine (Zyrtec), 10 MG PO QAM Divalproex Sodium (Depakote Er), 250 MG PO DAILY Duloxetine HCl (Cymbalta), 30 MG PO QAM Ergocalciferol (Vitamin D 05883 Unit), 50,000 UNIT PO MWF Ethinyl Estrad/Norgestimate (Sprintec 28), 1 TAB PO HS Magnesium Oxide (Mag-Ox), 400 MG PO HS Pantoprazole (Protonix), 40 MG PO BID Riboflavin (Vitamin B-2), 100 MG PO QAM Scheduled PRN Albuterol Hfa (Ventolin Hfa), 2 PUFFS INH QID PRN for SOB/Wheezing Acksrkv-Rhrtviovjbahz-Lawkyhnl (Excedrin Migraine), 2 TABS PO Q6H PRN for Migraine Ketorolac (Toradol), 10 MG PO QID PRN for Pain Lorazepam (Ativan), 1 MG PO HS PRN for Anxiety Ondansetron Hcl (Zofran), 1 TAB PO TID PRN for Nausea Propranolol Hcl (Inderal), 1 TAB PO BID PRN for Migraine Rizatriptan Benzoate (Maxalt-Barrel Washer), 10 MG PO for Migraine Tramadol (Ultram), 50 MG PO Q4H PRN for Migraine Physical Exam Vital Signs Date Time Temp Pulse Resp B/P (MAP) Pulse Ox O2 Delivery O2 Flow Rate FiO2 05/05/17 12:11 70 20 126/78 99 05/05/17 10:41 77 20 100/58 96 Room Air 05/05/17 09:44 82 20 113/63 95 Room Air 05/05/17 08:33 36.7 77 18 144/93 97 Room Air Physical Exam VITAL SIGNS - Vital signs and nursing notes were reviewed. GENERAL -pleasant and cooperative, in no acute distress, but appears uncomfortable. Resting in the stretcher with the lights off in the room and covering her eyes with her hands. Communicates well with provider and answers questions appropriately. HEAD - Normocephalic, Atraumatic. No Garcia's Sign or Raccoon's Eyes. No skull deformities palpated. EYES - PERRL with EOMI bilaterally. Sclera anicteric. Palpebral conjunctiva pink and moist with no injection noted. EARS - No deformities of external structures noted on gross examination bilaterally. No pain elicited with palpation of the tragus bilaterally. External auditory canals without discharge or otorrhea. Tympanic membranes pearly humphries without retraction or bulging. No fluid or purulent material visualized behind the TM. NOSE - Midline and without cyanosis. No epistaxis or purulent drainage noted. Septum midline without deviation or septal hematoma noted. MOUTH/OROPHARYNX - Without perioral cyanosis. Buccal mucosa pink and moist and without leukoplakia. Tongue midline with equal elevation of palate bilaterally. No tonsillar hypertrophy, erythema, or exudates noted. Normal dentition noted. NECK - Neck with FROM without discomfort. Supple to palpation. No lymphadenopathy noted. No nuchal rigidity. LUNGS - Chest wall symmetric without accessory muscle use, intercostals retractions, or central cyanosis. Normal vesicular breath sounds CTA B/L. No wheezes, rales, or rhonchi appreciated. CARDIAC - RRR with S1/S2. No murmur, rubs, or gallops appreciated. ABDOMEN - Abdominal contour obese without pulsations or visible masses. BS normoactive all four quadrants. No tenderness, palpable masses, hepatosplenomegaly, or ascites noted. EXTREMITIES - No pretibial edema present. + 2 radial and dorsalis pedis pulses palpated throughout. FROM with no tremors, fasciculations, or clonus noted on PROM throughout. +5/5 strength noted in UE/LE bilaterally. NEUROLOGIC - Cranial nerves II through XII grossly intact. Sensory intact to light touch throughout. Patient able to perform rapid alternating movements appropriately. Negative Romberg and Pronator Drift. Normal gait observed. PSYCH - Alert and oriented 4, cooperates fully with examiner. Pt is very pleasant and interacts well with examiner. Medical Decision & Procedures Laboratory Results Test 05/05/17 09:05 Urine Test NEG (NEG) Medications Administered Medications (Trade) Dose Ordered Sig/Paco Route Start Time Stop Time Status Last Admin Dose Admin Ketorolac Tromethamine (Toradol Inj) 15 mg NOW STAT IV 05/05/17 08:56 05/05/17 08:58 DC 05/05/17 09:28 15 MG Metoclopramide HCl (Reglan Inj) 10 mg NOW STAT IV 05/05/17 08:56 05/05/17 08:58 DC 05/05/17 08:56 10 MG Diphenhydramine HCl (Benadryl Inj) 50 mg NOW STAT IV 05/05/17 08:56 05/05/17 08:58 DC 05/05/17 09:25 50 MG Sodium Chloride 1,000 ml @ 999 mls/hr Q1H1M STAT IV 05/05/17 08:56 05/05/17 09:56 DC 05/05/17 09:30 999 MLS/HR Medical Decision CC: Patient presenting with complaint of migraine Interpretation of Labs: Urine is negative Differential Diagnosis: Includes, but not limited to migraine, tension headache , sinusitis, acute intracranial bleed, meningitis, mass or mass effect, among others. Medication Reconciliation: I attest that I have personally reviewed the patient' s current medication list. Vital signs review: I reviewed the patient's vital signs and interpret them as follows: T: Afebrile; BP: Hypertensive; HR: Within normal limits; RR: Within normal limits; Pulse Ox: Within normal limits on room air. Blood pressure screening: The patient was found to have an elevated blood pressure, this was resolved on subsequent checks and was felt to be situational. Summary: Patient was evaluated at bedside, history and physical exam performed. Patient is alert and oriented, no acute distress but does appear uncomfortable and in pain. Resting quietly in the stretcher with the lights off in the room. Neurologic exam is fully intact with no deficits. There are no red flag symptoms or exam findings to indicate a need for imaging, given her chronic history of migraines and reports of previous imaging that was negative. Orders were placed at bedside for IV fluids for hydration, migraine cocktail including IV Benadryl, Toradol, and Reglan. Patient discussed with Dr. Galvez, who agrees with my assessment and plan. Urine is negative. Patient reassessed approximately one hour after receiving medications and fluids , she appears much more comfortable and reports that her headache is much improved, now rating it 2/10. Patient was updated on plan for discharge, and was encouraged to continue following up with her PCP and neurologist for ongoing management. She was also given strict return precautions should her symptoms worsen, she verbalized understanding. Patient was discharged home in stable condition and ambulatory. Head Trauma GCS Score: 15 Medication Reconcilliation Current Medication List: was personally reviewed by me Impression Primary Impression: Migraine Departure Information Dispostion Home / Self-Care Condition GOOD Referrals Dian Parker D.O. (PCP) Patient Instructions ED Headache Migraine, My [facility] Additional Instructions DO NOT drive, drink alcohol, operate machinery, or perform dangerous activities today. You were given medications in the ER that can affect your ability to safely function or operate a vehicle. Rest today in a quiet, peaceful, dark environment and get a full 8-10 hrs of sleep tonight. Avoid loud noises, smoke/smoking, alcohol, bright lights, stress, or physical exertion today to minimize the chance the headache may return. Continue current medications as prescribed. Ibuprofen(Motrin, Advil) may be used for fever or pain. Use 600mg every 6-8 hours as needed. Take with food. Avoid using more than 2400mg in a 24 hour period. Do not use 2400mg per day for more than three consecutive days without physician direction. Prolonged inappropriate use can lead to stomach upset or ulcers. (AND/OR) Acetaminophen(Tylenol) may be used for fever or pain. Use 1000mg every 8 hours as needed. Avoid using more than 3000 mg in a 24 hour period. Return to the ER for passing out, worsening headache, vision problems, neck stiffness/pain, fevers, vomiting, worsening of your condition, or as needed. Follow up with your primary physician in 2-3 days for a recheck of your current condition. Continue follow-up with your primary care provider and neurologist for ongoing management of your migraine headaches. Work Instructions Return To Work: 1 day Problem Qualifiers Primary Impression: Migraine Migraine type: unspecified Status migrainosus presence: without status migrainosus Intractability: not intractable Qualified Codes: G43.909 - Migraine, unspecified, not intractable, without status migrainosus
[2017-05-05 12:11] VITALS: BP 126/78; PULSE 70; O2SAT 99
== END 2017-05-05 12:16 | disposition home or self-care (01) ==
LOC: C.EDB 08:32
DX: G43.709 Chronic migraine without aura, not intractable, without status migrainosus (principal); J45.909 Unspecified asthma, uncomplicated; R40.2412 Glasgow coma scale score 13-15, at arrival to emergency department; Z87.891 Personal history of nicotine dependence; Z79.3 Long term (current) use of hormonal contraceptives; Z80.3 Family history of malignant neoplasm of breast

== ENCOUNTER 2017-05-23 16:51 | Emergency (ER) | payer OTHER ==
[~2017-05-23] VITALS: Ht 162.6 cm; Wt 124.4 kg
[~2017-05-23 16:51] MED LIST changes: -DICY10CA55 PO; +ERGO500037 PO; -VTMD PO
[2017-05-23 16:55] VITALS: TEMP 36.8; Ht 162.6 cm; Wt 124.4 kg
--- NOTE | 2017-05-23 17:27 | EMERGENCY ROOM VISIT NOTE ---
History Report prepared by Francois: Jeet Mclain Under the Supervision of: Dr. Yosi Ibarra M.D. First contact with patient: 17:13 Chief Complaint: ABDOMINAL PAIN Stated Complaint: R LOWER ABD PAIN,REF BY DR FOR CT SCAN Nursing Triage Summary: pt reports abdominal pain X 3 days with nausea . pt had Ct sched insurance would not authorize sent in by PCP for eval and tx History of Present Illness The patient is a 36 year old female who presents to the Emergency Room with complaints of worsening right sided abdominal pain that began 2 days ago. Her doctor sent her to get a CT scan. The patient reports nausea, hematuria, abdominal swelling, and depressed appetite. The patient took Ibuprofen at 1300 for a headache with minimal pain relief. The patient denies any rashes, falls, fevers, lower extremity swelling, kidney pain, kidney stones, and blood thinner use. The patient had a cholecystectomy in 2017. The patient still has her ovaries and appendix. Of note, the patient currently takes Cymbalta, Adderall, Zyrtec, and Albuterol. Nothing makes symptoms better nor worse. Source of History: patient Onset: 2 days ago Position: abdomen (RLQ) Timing: constant Associated Symptoms: + headache (chronic migraines), + nausea, + abdominal pain, + urinary symptoms (hematuria), No fevers, No rash Note: Pt states abdominal swelling. Pt denies lower extremity swelling and recent falls. Review of Systems See HPI for pertinent positives & negatives. A total of 10 systems reviewed and were otherwise negative. Past Medical & Surgical Medical Problems: (1) Asthma, mild persistent (2) Depression (3) GERD (gastroesophageal reflux disease) (4) Migraine Surgical Problems: (1) H/O exploratory laparotomy (2) History of carpal tunnel surgery (3) S/P surgical manipulation of ankle joint Family History FH: breast cancer MOTHER Social History Smoking Status: Never Smoker Alcohol Use: occasionally Current/Historical Medications Scheduled Amphetamine-Dextroamphetamine 20MG (Adderall 20MG), 20 MG PO BID Cetirizine (Zyrtec), 10 MG PO QAM Duloxetine HCl (Cymbalta), 30 MG PO QAM Ergocalciferol (Vitamin D 33912 Unit), 50,000 UNIT PO MWF Ethinyl Estrad/Norgestimate (Sprintec 28), 1 TAB PO HS Magnesium Oxide (Mag-Ox), 400 MG PO HS Pantoprazole (Protonix), 40 MG PO BID Riboflavin (Vitamin B-2), 100 MG PO QAM Scheduled PRN Albuterol Hfa (Ventolin Hfa), 2 PUFFS INH QID PRN for SOB/Wheezing Qxmxbei-Bcolcnqhxnjpj-Cgbtdwjx (Excedrin Migraine), 2 TABS PO Q6H PRN for Migraine Ketorolac (Toradol), 10 MG PO QID PRN for Pain Lorazepam (Ativan), 1 MG PO HS PRN for Anxiety Ondansetron Hcl (Zofran), 1 TAB PO TID PRN for Nausea Propranolol Hcl (Inderal), 1 TAB PO BID PRN for Migraine Rizatriptan Benzoate (Maxalt-Education Sales Consultant), 10 MG PO for Migraine Tramadol (Ultram), 50 MG PO Q4H PRN for Migraine Allergies Coded Allergies: Sulfa Antibiotics (Verified Allergy, Severe, HIVES, 05/23/17) Amoxicillin (Verified Allergy, Intermediate, HIVES, 05/23/17) Clavulanic Acid (Verified Allergy, Intermediate, HIVES, 05/23/17) Lactose (Verified Allergy, Intermediate, DIARRHEA, 05/23/17) Silver Sulfadiazine (Verified Allergy, Intermediate, HIVES, 05/23/17) Latex (Verified Allergy, Mild, REDNESS, 05/23/17) Cephalexin (Verified Allergy, Unknown, HIVES, 05/23/17) Physical Exam Vital Signs Date Time Temp Pulse Resp B/P (MAP) Pulse Ox O2 Delivery O2 Flow Rate FiO2 05/23/17 19:00 88 16 162/88 98 05/23/17 16:55 36.8 120 20 147/94 98 Room Air Physical Exam GENERAL: Patient is well appearing and in mild distress. HEENT: No acute trauma, normocephalic atraumatic, mucous membranes moist, no nasal congestion, no scleral icterus. NECK: No stridor, no adenopathy, no meningismus, trachea is midline. LUNGS: No dyspnea. Clear to auscultation and equal bilaterally. No wheeze, no rhonchi. HEART: Tachycardiac and regular rhythm. No murmurs, rubs, gallops appreciated. ABDOMEN: Soft, bowel sounds positive, no masses appreciated, no peritonitis. Moderate RLQ tenderness to palpation. BACK: No midline tenderness, no CVA tenderness EXTREMITIES: Normal motion all extremities, no cyanosis, no edema. NEUROLOGIC: Alert and oriented, no acute motor or sensory deficits, no focal weakness, cranial nerves grossly intact. SKIN: No rash, no jaundice, no diaphoresis. Medical Decision & Procedures ER Provider Diagnostic Interpretation: Radiology results and stated below per my review and radiologist interpretation: CT ABD/PELVIS IV CONTRAST ONLY CLINICAL HISTORY: Right lower quadrant abdominal pain and vomiting COMPARISON STUDY: None. TECHNIQUE: Following the IV administration of 116 mL of Optiray-320, CT scan of the abdomen and pelvis was performed from the lung bases to the proximal femurs. Images are reviewed in the axial, sagittal, and coronal planes. IV contrast was administered without complication. A dose lowering technique was utilized adhering to the principles of ALARA. CT DOSE: 1738.93 mGy.cm FINDINGS: Lower chest: The heart is normal in size and configuration, without pericardial effusion. The lung bases and pleural spaces are clear. Liver: The contrast-enhanced liver is normal in size, contour, and attenuation. There is no intrahepatic biliary ductal dilatation. The hepatic veins and portal veins are patent. Gallbladder: Surgically absent Spleen: Normal in size and attenuation. Pancreas: Unremarkable. Adrenal glands: Unremarkable. Kidneys: There is symmetric renal cortical enhancement. The kidneys are normal in size without hydronephrosis. Bowel: There are no transition zones to indicate bowel obstruction. There are few colonic diverticula present. There is no evidence of acute diverticulitis. There is no evidence of acute appendicitis. Peritoneum: There is no intraperitoneal free air or abdominal ascites. Vasculature: The abdominal aorta is normal in course and caliber. Adenopathy: None. Pelvic viscera: The bladder, and pelvic viscera are unremarkable. Skeletal structures: No destructive osseous lesions are seen. IMPRESSION: 1. No acute intra-abdominal or pelvic findings 2. No evidence of bowel obstruction. No evidence of free air 3. No evidence of acute diverticulitis. No evidence of acute appendicitis. Electronically signed by: Morteza Donnelly M.D. 05/23/2017 6:27 PM Dictated Date/Time: 05/23/2017 6:23 PM Laboratory Results 05/23/17 17:35 Red Blood Count 4.62, Mean Corpuscular Volume 93.3, Mean Corpuscular Hemoglobin 31.4, Mean Corpuscular Hemoglobin Concent 33.6, Mean Platelet Volume 10.0, Neutrophils (%) (Auto) 70.7, Lymphocytes (%) (Auto) 19.4, Monocytes (%) (Auto) 8.5, Eosinophils (%) (Auto) 0.9, Basophils (%) (Auto) 0.2, Neutrophils # (Auto) 7.56, Lymphocytes # (Auto) 2.07, Monocytes # (Auto) 0.91, Eosinophils # (Auto) 0.10, Basophils # (Auto) 0.02 05/23/17 17:35 Test 05/23/17 17:30 05/23/17 17:35 05/23/17 17:46 Urine Color YELLOW Urine Appearance CLEAR (CLEAR) Urine pH 5.0 (4.5-7.5) Urine Specific [place] 1.014 (1.000-1.030) Urine Protein NEG (NEG) Urine Glucose (UA) NEG (NEG) Urine Ketones NEG (NEG) Urine Occult Blood NEG (NEG) Urine Nitrite NEG (NEG) Urine Bilirubin NEG (NEG) Urine Urobilinogen NEG (NEG) Urine Leukocyte Esterase NEG (NEG) Urine WBC (Auto) 1-5 /hpf (0-5) Urine RBC (Auto) 0-4 /hpf (0-4) Urine Hyaline Casts (Auto) 1-5 /lpf (0-5) Urine Epithelial Cells (Auto) 10-20 /lpf (0-5) Urine Bacteria (Auto) NEG (NEG) Urine Test NEG (NEG) White Blood Count 10.69 K/uL (4.8-10.8) Red Blood Count 4.62 M/uL (4.2-5.4) Hemoglobin 14.5 g/dL (12.0-16.0) Hematocrit 43.1 % (37-47) Mean Corpuscular Volume 93.3 fL (80-100) Mean Corpuscular Hemoglobin 31.4 pg (25-34) Mean Corpuscular Hemoglobin Concent 33.6 g/dl (32-36) Platelet Count 337 K/uL (130-400) Mean Platelet Volume 10.0 fL (7.4-10.4) Neutrophils (%) (Auto) 70.7 % Lymphocytes (%) (Auto) 19.4 % Monocytes (%) (Auto) 8.5 % Eosinophils (%) (Auto) 0.9 % Basophils (%) (Auto) 0.2 % Neutrophils # (Auto) 7.56 K/uL (1.4-6.5) Lymphocytes # (Auto) 2.07 K/uL (1.2-3.4) Monocytes # (Auto) 0.91 K/uL (0.11-0.59) Eosinophils # (Auto) 0.10 K/uL (0-0.5) Basophils # (Auto) 0.02 K/uL (0-0.2) RDW Standard Deviation 43.0 fL (36.4-46.3) RDW Coefficient of Variation 12.7 % (11.5-14.5) Immature Granulocyte % (Auto) 0.3 % Immature Granulocyte # (Auto) 0.03 K/uL (0.00-0.02) Est Creatinine Clear Calc Drug Dose 113.9 ml/min Estimated GFR () 96.6 Estimated GFR (Non- 83.4 BUN/Creatinine Ratio 12.8 (10-20) Calcium Level 9.1 mg/dl (8.5-10.1) Total Bilirubin 0.6 mg/dl (0.2-1) Direct Bilirubin 0.1 mg/dl (0-0.2) Aspartate Amino Transf (AST/SGOT) 24 U/L (15-37) Alanine Aminotransferase (ALT/SGPT) 36 U/L (12-78) Alkaline Phosphatase 52 U/L (45-117) Total Protein 7.4 gm/dl (6.4-8.2) Albumin 3.4 gm/dl (3.4-5.0) Lipase 184 U/L (73-393) Bedside Hemoglobin 14.6 g/dl (12.0-16.0) Bedside Hematocrit 43 % (37-47) Bedside Sodium 138 mEq/L (135-144) Bedside Potassium 4.0 mEq/L (3.3-5.0) Bedside Chloride 99 mEq/L (101-112) Bedside Total CO2 26 mEq/l (24-31) Anion Gap 18.0 mmol/L (16-25) Bedside Blood Urea Nitrogen 11 mg/dl (7-18) Bedside Creatinine 0.9 mg/dl (0.6-1.3) Bedside Glucose (other) 91 mg/dl (70-99) Bedside Ionized Calcium (Chelly) 1.15 mmol/l (1.12-1.32) Laboratory results as reviewed by me. ED Course 1713: The patient was evaluated in room C8. A complete history and physical exam was performed. 184: Reevaluated the patient. Discussed results and discharge instructions: The patient verbalized understanding and agreement. The patient is ready for discharge. Medical Decision Differential: Appendicitis, , MSK, Diverticulitis, UTI, Renal Colic, Bowel Obstruction, Aortic Pathology, amongst other pathologies entertained. 36 yr old female with RLQ pain over last two days. Benign exam other than some RLQ TTP that is not very convincing for surgical issue though as sent to CT by PCP and symptoms will go ahead and obtain this. CT fortunately without acute findings. Labs look good. Discussed difficulty with determining causing of abdo pain with patient and need to monitor with PCP follow up. Reviewed symptoms requiring RTED. Medication Reconcilliation Current Medication List: was personally reviewed by me Blood Pressure Screening Patient's blood pressure: Elevated blood pressure Blood pressure disposition: Elevated BP felt to be situational Impression Primary Impression: Right lower quadrant abdominal pain Scribe Attestation The scribe's documentation has been prepared under my direction and personally reviewed by me in its entirety. I confirm that the note above accurately reflects all work, treatment, procedures, and medical decision making performed by me. Departure Information Dispostion Home / Self-Care Referrals Dian Parker D.O. (PCP) Patient Instructions ED Abdominal Pain Unkn Cause, My [facility] Additional Instructions You have been examined and treated today on an emergency basis only. This is not a substitute for, or an effort to provide, complete comprehensive medical care. It is impossible to recognize and treat all injuries or illnesses in a single emergency department visit. It is therefore important that you follow up closely with your Primary Physician. Call as soon as possible for an appointment so you can review all labs, imaging and other testing that you had. Return to Emergency Department, call 911 or seek immediate medical attention if you feel your symptoms are worsening.
[2017-05-23 17:58] LABS: ISTAT CREATININE 0.9 mg/dl (0.6-1.3); ISTAT IONIZED CALCIUM 1.15 mmol/l (1.12-1.32)
[2017-05-23] MEDS ORDERED: OPTIRAY 320 IV PRN (18:00)
[2017-05-23 18:02] LABS: BASO % 0.2 %; BASO ABS # 0.02 K/uL (0-0.2); EOS % 0.9 %; HEMATOCRIT 43.1 % (37-47); HEMOGLOBIN 14.5 g/dL (12.0-16.0); IG# 0.03 K/uL (0.00-0.02); LYMPH % 19.4 %; LYMPH ABS # 2.07 K/uL (1.2-3.4); MEAN CELL VOLUME 93.3 fL (80-100); MEAN CORPUSCULAR HEMOGLOBIN 31.4 pg (25-34); MEAN CORPUSCULAR HGB CONC 33.6 g/dl (32-36); MONO % 8.5 %; MONO ABS # 0.91 K/uL (0.11-0.59); NEUT % 70.7 %; NEUT ABS # 7.56 K/uL (1.4-6.5); PLATELET COUNT 337 K/uL (130-400); RED CELL DISTRIBUTION WIDTH CV 12.7 % (11.5-14.5); WHITE BLOOD COUNT 10.69 K/uL (4.8-10.8)
[2017-05-23 18:27] LABS: ALBUMIN 3.4 gm/dl (3.4-5.0); CALCIUM 9.1 mg/dl (8.5-10.1); CREATININE 0.89 mg/dl (0.60-1.20); POTASSIUM 3.9 mmol/L (3.5-5.1)
--- NOTE | 2017-05-23 18:28 | DIAGNOSTIC IMAGING REPORT ---
CT ABD/PELVIS IV CONTRAST ONLY CLINICAL HISTORY: Right lower quadrant abdominal pain and vomiting COMPARISON STUDY: None. TECHNIQUE: Following the IV administration of 116 mL of Optiray-320, CT scan of the abdomen and pelvis was performed from the lung bases to the proximal femurs. Images are reviewed in the axial, sagittal, and coronal planes. IV contrast was administered without complication. A dose lowering technique was utilized adhering to the principles of ALARA. CT DOSE: 1738.93 mGy.cm FINDINGS: Lower chest: The heart is normal in size and configuration, without pericardial effusion. The lung bases and pleural spaces are clear. Liver: The contrast-enhanced liver is normal in size, contour, and attenuation. There is no intrahepatic biliary ductal dilatation. The hepatic veins and portal veins are patent. Gallbladder: Surgically absent Spleen: Normal in size and attenuation. Pancreas: Unremarkable. Adrenal glands: Unremarkable. Kidneys: There is symmetric renal cortical enhancement. The kidneys are normal in size without hydronephrosis. Bowel: There are no transition zones to indicate bowel obstruction. There are few colonic diverticula present. There is no evidence of acute diverticulitis. There is no evidence of acute appendicitis. Peritoneum: There is no intraperitoneal free air or abdominal ascites. Vasculature: The abdominal aorta is normal in course and caliber. Adenopathy: None. Pelvic viscera: The bladder, and pelvic viscera are unremarkable. Skeletal structures: No destructive osseous lesions are seen. IMPRESSION: 1. No acute intra-abdominal or pelvic findings 2. No evidence of bowel obstruction. No evidence of free air 3. No evidence of acute diverticulitis. No evidence of acute appendicitis. Electronically signed by: Morteza Donnelly M.D. 05/23/2017 6:27 PM Dictated Date/Time: 05/23/2017 6:23 PM
[2017-05-23 18:30] LABS: TOTAL PROTEIN 7.4 gm/dl (6.4-8.2)
[2017-05-23 19:00] VITALS: BP 162/88; PULSE 88; O2SAT 98
== END 2017-05-23 19:01 | disposition home or self-care (01) ==
LOC: C.EDB 16:52 → C.EDC 19:01
DX: R10.31 Right lower quadrant pain (principal); Z90.49 Acquired absence of other specified parts of digestive tract; J45.30 Mild persistent asthma, uncomplicated; K21.9 Gastro-esophageal reflux disease without esophagitis; F32.9 Major depressive disorder, single episode, unspecified; Z98.890 Other specified postprocedural states; Z80.3 Family history of malignant neoplasm of breast; Z79.899 Other long term (current) drug therapy

== ENCOUNTER 2017-06-08 19:37 | Emergency (ER) | payer OTHER ==
[~2017-06-08] VITALS: Ht 162.6 cm; Wt 127.0 kg
[~2017-06-08 19:37] MED LIST changes: -DIVA250T PO
[2017-06-08 19:53] VITALS: TEMP 36.9; Ht 162.6 cm; Wt 127.0 kg
--- NOTE | 2017-06-08 20:25 | EMERGENCY ROOM VISIT NOTE ---
History First contact with patient: 19:57 Chief Complaint: ABDOMINAL PAIN Stated Complaint: STOMACH PAIN History of Present Illness The patient is a 36 year old female who presents to the Emergency Room with complaints of right lower quadrant abdominal pain radiating upwards to her right upper abdomen 3 weeks. The patient was seen here May 23 complaining of right lower quadrant pain. She had labs and a CT scan performed at that time. Labs and CT scan were unrevealing for acute cause of her pain. The patient states she was sent home and advised follow-up outpatient. She did see her PCP outpatient once, a few days after discharge, but was advised to watch and wait. The patient states she has continued to experience the pain for the past 3 weeks, and states that has not changed and is not different than it was previously. She states she was under the impression that she was advised to return if her pain does not improve, and she has not contacted her PCP again for further workup. The patient describes the pain as stabbing, and states eating makes it worse. She states it is present consistently, but worse after food. She describes the pain as "like with my gallbladder". The patient complains of nausea, chills, and diarrhea associated with the pain. She denies any chest pain, dyspnea, cough, vaginal pain with intercourse, vaginal discharge , urinary symptoms including pain, dysuria, urinary frequency, or urinary hesitancy. Her last menstrual period was 4 weeks ago. The patient did have cholecystectomy in June 2016. Review of Systems A complete 10 point review of systems was reviewed with the patient with pertinent positives and negatives as per history of present illness. All else were negative. Past Medical/Surgical History Medical Problems: (1) Asthma, mild persistent (2) Depression (3) GERD (gastroesophageal reflux disease) (4) Migraine Surgical Problems: (1) H/O exploratory laparotomy (2) History of carpal tunnel surgery (3) S/P surgical manipulation of ankle joint Family History FH: breast cancer MOTHER Social History Smoking Status: Never Smoker Smokeless Tobacco Use: No Alcohol Use: occasionally Drug Use: none Housing Status: lives with family Current/Historical Medications Scheduled Cetirizine (Zyrtec), 10 MG PO QAM Duloxetine HCl (Cymbalta), 30 MG PO QAM Ergocalciferol (Vitamin D 72742 Unit), 50,000 UNIT PO MWF Ethinyl Estrad/Norgestimate (Sprintec 28), 1 TAB PO HS Magnesium Oxide (Mag-Ox), 400 MG PO HS Pantoprazole (Protonix), 40 MG PO BID Riboflavin (Vitamin B-2), 100 MG PO QAM Scheduled PRN Albuterol Hfa (Ventolin Hfa), 2 PUFFS INH QID PRN for SOB/Wheezing Amphetamine-Dextroamphetamine 20MG (Adderall 20MG), 20 MG PO BID PRN for STAY AWAKE Xkfflgk-Xpjditjijomsx-Yanxqzjp (Excedrin Migraine), 2 TABS PO Q6H PRN for Migraine Ketorolac (Toradol), 10 MG PO QID PRN for Pain Lorazepam (Ativan), 1 MG PO HS PRN for Anxiety Ondansetron Hcl (Zofran), 1 TAB PO TID PRN for Nausea Propranolol Hcl (Inderal), 1 TAB PO BID PRN for Migraine Rizatriptan Benzoate (Maxalt-Photogrammetric Tech), 10 MG PO for Migraine Tramadol (Ultram), 50 MG PO Q4H PRN for Migraine Physical Exam Vital Signs Date Time Temp Pulse Resp B/P (MAP) Pulse Ox O2 Delivery O2 Flow Rate FiO2 06/08/17 21:48 89 18 130/78 97 Room Air 06/08/17 19:53 36.9 118 18 148/93 96 Room Air Physical Exam VITALS: Vitals are noted on the nurse's note and reviewed by myself. Vital signs stable. GENERAL: This is a 36-year-old obese white female, in no acute distress, nondiaphoretic, well-developed well-nourished. SKIN: The skin was without rashes, erythema, edema, or bruising. There is no tenting of the skin. Capillary reflex less than 2 seconds. HEAD: Normocephalic atraumatic. EARS: External auditory canals clear, tympanic membranes pearly humphries without erythema or effusion bilaterally. EYES: Pupils equal round and reactive to light and accommodation. Conjunctivae without injection, sclerae without icterus. Extraocular movements intact. NOSE: Patent, turbinates without inflammation or discharge. No sinus tenderness. MOUTH: Mucous membranes moist. Tonsils are not enlarged. Pharynx without erythema or exudate. Uvula midline. Airway patent. Tongue does not deviate. NECK: Supple without nuchal rigidity. No lymphadenopathy. No thyromegaly. Cervical spine is nontender. No JVD. HEART: Regular rate and rhythm without murmurs gallops or rubs. LUNGS: Clear to auscultation bilaterally without wheezes, rales or rhonchi. No dullness to percussion. No retractions or accessory muscle use. ABDOMEN: Positive bowel sounds x 4. Normal tympanic percussion. Tenderness noted on deep palpation of the right lower quadrant. Otherwise, abdomen was soft, nontender, without masses or organomegaly. Whaley sign negative. No guarding or rebound tenderness. Negative Rovsing's. MUSCULOSKELETAL: No muscle atrophy, erythema, or edema noted. Full range of motion without joint tenderness in all extremities. No tenderness to palpation. Normal gait. Strength 5/5 throughout. NEURO: Patient was alert and oriented to person place and time. Normal sensation to light and sharp touch. Deep tendon reflexes 2+ throughout. No focal neurological deficits. Medical Decision & Procedures ER Provider Diagnostic Interpretation: CBC without leukocytosis, anemia, thrombocytopenia. CMP without significant renal, hepatic, electrolyte abnormalities. TSH normal. Lipase normal. Urinalysis without signs of infection. Urine test negative PELVIC COMPLETE NON OB HISTORY: 36 years-old Female RLQ pain acute right lower quadrant abdominal pain COMPARISON: CT abdomen and pelvis 05/23/2017 TECHNIQUE: Multiple real-time sonographic images of the pelvis were obtained transabdominally and transvaginally assessing grayscale appearance, color and spectral flow. FINDINGS: TRANSABDOMINAL: Anteflexed uterus measures 10.1 x 4.4 x 5.8 cm. Endometrium measures 7 mm. Right ovary measures 2.9 x 2.0 x 2.2 cm and is unremarkable demonstrating arterial inflow. Left ovary measures 2.3 x 2.5 x 1.6 cm and is also within normal limits with arterial inflow documented. TRANSVAGINAL: Uterus measures 10.6 x 4.5 x 6.3 cm. Endometrium measures 7 mm. No myometrial mass lesions identified. Ovaries are not well seen. No significant free pelvic fluid. Limited study secondary to patient body habitus. IMPRESSION: 1. Unremarkable sonographic appearance of the uterus, endometrium and ovaries. 2. No evidence of ovarian torsion. The above report was generated using voice recognition software. It may contain grammatical, syntax or spelling errors. Electronically signed by: Anival Christianson M.D. 06/08/2017 9:32 PM Dictated Date/Time: 06/08/2017 9:29 PM (RENAL)RETROPERITON COMP HISTORY: 36 years-old Female Right flank pain acute right-sided flank pain COMPARISON: CT abdomen and pelvis 05/23/2017 TECHNIQUE: Multiple real time sonographic images of the kidneys and urinary bladder were obtained assessing grayscale appearance and color flow FINDINGS: Right kidney measures 10.9 x 4.6 x 4.8 cm and is unremarkable without hydronephrosis, calculi or focal mass lesion. The left kidney measures 11.0 x 5.4 x 4.7 cm and is also within normal limits without renal calculi, hydronephrosis or focal mass lesion. Bilateral ureteral jets are noted. Urinary bladder is unremarkable. Increased echogenicity of the liver suggests possible hepatic steatosis. IMPRESSION: Unremarkable sonographic appearance of the kidneys and urinary bladder without renal calculi or hydronephrosis. The above report was generated using voice recognition software. It may contain grammatical, syntax or spelling errors. Electronically signed by: Anival Christianson M.D. 06/08/2017 9:49 PM Dictated Date/Time: 06/08/2017 9:45 PM Laboratory Results 06/08/17 20:30 Red Blood Count 4.30, Mean Corpuscular Volume 93.3, Mean Corpuscular Hemoglobin 31.4, Mean Corpuscular Hemoglobin Concent 33.7, Mean Platelet Volume 9.7, Neutrophils (%) (Auto) 58.3, Lymphocytes (%) (Auto) 28.5, Monocytes (%) (Auto) 10.2, Eosinophils (%) (Auto) 2.4, Basophils (%) (Auto) 0.3, Neutrophils # (Auto ) 4.59, Lymphocytes # (Auto) 2.24, Monocytes # (Auto) 0.80, Eosinophils # (Auto ) 0.19, Basophils # (Auto) 0.02 06/08/17 20:30 Test 06/08/17 20:30 White Blood Count 7.86 K/uL (4.8-10.8) Red Blood Count 4.30 M/uL (4.2-5.4) Hemoglobin 13.5 g/dL (12.0-16.0) Hematocrit 40.1 % (37-47) Mean Corpuscular Volume 93.3 fL (80-100) Mean Corpuscular Hemoglobin 31.4 pg (25-34) Mean Corpuscular Hemoglobin Concent 33.7 g/dl (32-36) Platelet Count 388 K/uL (130-400) Mean Platelet Volume 9.7 fL (7.4-10.4) Neutrophils (%) (Auto) 58.3 % Lymphocytes (%) (Auto) 28.5 % Monocytes (%) (Auto) 10.2 % Eosinophils (%) (Auto) 2.4 % Basophils (%) (Auto) 0.3 % Neutrophils # (Auto) 4.59 K/uL (1.4-6.5) Lymphocytes # (Auto) 2.24 K/uL (1.2-3.4) Monocytes # (Auto) 0.80 K/uL (0.11-0.59) Eosinophils # (Auto) 0.19 K/uL (0-0.5) Basophils # (Auto) 0.02 K/uL (0-0.2) RDW Standard Deviation 42.2 fL (36.4-46.3) RDW Coefficient of Variation 12.5 % (11.5-14.5) Immature Granulocyte % (Auto) 0.3 % Immature Granulocyte # (Auto) 0.02 K/uL (0.00-0.02) Erythrocyte Sedimentation Rate 16 mm/hr (0-21) Urine Color YELLOW Urine Appearance CLEAR (CLEAR) Urine pH 7.0 (4.5-7.5) Urine Specific [place] 1.017 (1.000-1.030) Urine Protein NEG (NEG) Urine Glucose (UA) NEG (NEG) Urine Ketones NEG (NEG) Urine Occult Blood NEG (NEG) Urine Nitrite NEG (NEG) Urine Bilirubin NEG (NEG) Urine Urobilinogen NEG (NEG) Urine Leukocyte Esterase NEG (NEG) Urine Test NEG (NEG) Anion Gap 9.0 mmol/L (3-11) Est Creatinine Clear Calc Drug Dose 100.7 ml/min Estimated GFR () 82.0 Estimated GFR (Non- 70.7 BUN/Creatinine Ratio 12.4 (10-20) Calcium Level 8.8 mg/dl (8.5-10.1) Total Bilirubin 0.2 mg/dl (0.2-1) Aspartate Amino Transf (AST/SGOT) 14 U/L (15-37) Alanine Aminotransferase (ALT/SGPT) 21 U/L (12-78) Alkaline Phosphatase 44 U/L (45-117) Total Protein 6.6 gm/dl (6.4-8.2) Albumin 2.9 gm/dl (3.4-5.0) Globulin 3.7 gm/dl (2.5-4.0) Albumin/Globulin Ratio 0.8 (0.9-2) Lipase 191 U/L (73-393) Thyroid Stimulating Hormone (TSH) 1.930 uIu/ml (0.300-4.500) ED Course The patient was seen and evaluated as above. IV access obtained, labs drawn. Imaging ordered. Labs and imaging were reviewed by myself (imaging by radiology as well). Results discussed with the patient and her mother at bedside. Discharge instructions reviewed and the patient was discharged home in good condition. Medical Decision This is a 36-year-old female patient presents for the second time in 3 weeks complaining of exactly the same right lower quadrant abdominal pain. Previously , the patient did have a CT scan performed, which did not reveal any acute abnormalities. At this time, decision was made to evaluate for gynecologic or renal concerns with ultrasound. I do not feel that repeat CT scan at this time is necessary, as the patient's pain has not changed. Workup here in the emergency department today was again unrevealing for acute cause of the patient' s discomfort. I did recommend further outpatient workup, with possible GI and/ or gynecologic referrals and consults. I encouraged the patient to try a bland diet, in the case that her diet is causing some of her discomfort. The patient is agreeable, and states she does have difficulty following up outpatient due to her work schedule. I discussed with her that we are happy to continue to see her here in the emergency Department, however she may not get the proper care management that she needs from this acute care setting. The patient verbalizes understanding. Etiologies such as appendicitis, diverticulitis, gynecological causes such as , ectopic , ovarian cyst, ovarian torsion, obstruction, inflammatory bowel disease, renal colic, PUD, biliary pathology, pancreatitis, mesenteric ischemia, aortic pathology, infections, genitourinary, UTI, perforated viscus, as well as others were entertained. Medication Reconcilliation Current Medication List: was personally reviewed by me Blood Pressure Screening Patient's blood pressure: Elevated blood pressure Blood pressure disposition: Elevated BP felt to be situational Impression Primary Impression: Right lower quadrant abdominal pain Departure Information Dispostion Home / Self-Care Condition GOOD Referrals Dian Parker D.O. (PCP) Patient Instructions ED Abdominal Pain Unkn Cause, My Niranjan Stinson Additional Instructions You have been treated in the Emergency Department your Abdominal Pain. Laboratory results and imaging studies have ruled out any emergent causes for your abdominal pain which would warrant admission or surgery. For pain control, you can use the following [id number]-rvzurpa medicines (if >12 yo): Ibuprofen(Motrin, Advil) may be used for fever or pain. Use 600mg every six hours as needed. Take with food. Avoid using more than 2400mg in a 24 hour period. Do not use 2400mg per day for more than three consecutive days without physician direction. Prolonged inappropriate use can lead to stomach upset or ulcers. (AND/OR) Acetaminophen(Tylenol) may be used for fever or pain. Use 1000mg every six hours as needed. Avoid using more than 3000mg in a 24 hour period. As discussed, you may want to consider a bland, low fat diet for at least 1 week in attempt to determine if diet could be causing your symptoms. Drink plenty of water and stay well hydrated. As with any trip to the Emergency Department, you should follow-up with your Primary Care Provider from today's visit. I suspect GI referral would be warranted. You PCP can direct you on ongoing management. Return to the emergency department if your symptoms persist despite treatment plan outlined above or if the following symptoms occur: severe or worse abdominal pain, increased fevers, chills, worsening nausea/vomiting, blood in your stool or urine.
[2017-06-08 20:37] LABS: BASO % 0.3 %; BASO ABS # 0.02 K/uL (0-0.2); EOS % 2.4 %; EOS ABS # 0.19 K/uL (0-0.5); HEMATOCRIT 40.1 % (37-47); HEMOGLOBIN 13.5 g/dL (12.0-16.0); IG# 0.02 K/uL (0.00-0.02); LYMPH % 28.5 %; LYMPH ABS # 2.24 K/uL (1.2-3.4); MEAN CELL VOLUME 93.3 fL (80-100); MEAN CORPUSCULAR HEMOGLOBIN 31.4 pg (25-34); MEAN CORPUSCULAR HGB CONC 33.7 g/dl (32-36); MEAN PLATELET VOLUME 9.7 fL (7.4-10.4); MONO % 10.2 %; NEUT % 58.3 %; NEUT ABS # 4.59 K/uL (1.4-6.5); PLATELET COUNT 388 K/uL (130-400); RED CELL DISTRIBUTION WIDTH CV 12.5 % (11.5-14.5); RED CELL DISTRIBUTION WIDTH SD 42.2 fL (36.4-46.3); WHITE BLOOD COUNT 7.86 K/uL (4.8-10.8)
[2017-06-08 20:56] LABS: ALBUMIN 2.9 gm/dl (3.4-5.0); CALCIUM 8.8 mg/dl (8.5-10.1); CREATININE 1.02 mg/dl (0.60-1.20)
[2017-06-08 21:07] LABS: TOTAL PROTEIN 6.6 gm/dl (6.4-8.2)
--- NOTE | 2017-06-08 21:34 | DIAGNOSTIC IMAGING REPORT ---
PELVIC COMPLETE NON OB HISTORY: 36 years-old Female RLQ pain acute right lower quadrant abdominal pain COMPARISON: CT abdomen and pelvis 05/23/2017 TECHNIQUE: Multiple real-time sonographic images of the pelvis were obtained transabdominally and transvaginally assessing grayscale appearance, color and spectral flow. FINDINGS: TRANSABDOMINAL: Anteflexed uterus measures 10.1 x 4.4 x 5.8 cm. Endometrium measures 7 mm. Right ovary measures 2.9 x 2.0 x 2.2 cm and is unremarkable demonstrating arterial inflow. Left ovary measures 2.3 x 2.5 x 1.6 cm and is also within normal limits with arterial inflow documented. TRANSVAGINAL: Uterus measures 10.6 x 4.5 x 6.3 cm. Endometrium measures 7 mm. No myometrial mass lesions identified. Ovaries are not well seen. No significant free pelvic fluid. Limited study secondary to patient body habitus. IMPRESSION: 1. Unremarkable sonographic appearance of the uterus, endometrium and ovaries. 2. No evidence of ovarian torsion. The above report was generated using voice recognition software. It may contain grammatical, syntax or spelling errors. Electronically signed by: Anival Christianson M.D. 06/08/2017 9:32 PM Dictated Date/Time: 06/08/2017 9:29 PM
--- NOTE | 2017-06-08 21:50 | DIAGNOSTIC IMAGING REPORT ---
(RENAL)RETROPERITON COMP HISTORY: 36 years-old Female Right flank pain acute right-sided flank pain COMPARISON: CT abdomen and pelvis 05/23/2017 TECHNIQUE: Multiple real time sonographic images of the kidneys and urinary bladder were obtained assessing grayscale appearance and color flow FINDINGS: Right kidney measures 10.9 x 4.6 x 4.8 cm and is unremarkable without hydronephrosis, calculi or focal mass lesion. The left kidney measures 11.0 x 5.4 x 4.7 cm and is also within normal limits without renal calculi, hydronephrosis or focal mass lesion. Bilateral ureteral jets are noted. Urinary bladder is unremarkable. Increased echogenicity of the liver suggests possible hepatic steatosis. IMPRESSION: Unremarkable sonographic appearance of the kidneys and urinary bladder without renal calculi or hydronephrosis. The above report was generated using voice recognition software. It may contain grammatical, syntax or spelling errors. Electronically signed by: Anival Christianson M.D. 06/08/2017 9:49 PM Dictated Date/Time: 06/08/2017 9:45 PM
[2017-06-08 22:26] VITALS: BP 130/78; PULSE 89; O2SAT 97
== END 2017-06-08 22:27 | disposition home or self-care (01) ==
LOC: C.EDB 19:38 → C.EDA 22:27
DX: R10.31 Right lower quadrant pain (principal); Z90.49 Acquired absence of other specified parts of digestive tract; J45.30 Mild persistent asthma, uncomplicated; F32.9 Major depressive disorder, single episode, unspecified; K21.9 Gastro-esophageal reflux disease without esophagitis; Z80.3 Family history of malignant neoplasm of breast; Z79.899 Other long term (current) drug therapy; E66.9 Obesity, unspecified; Z68.42 Body mass index [BMI] 45.0-49.9, adult

== ENCOUNTER 2017-08-19 15:37 | Emergency (ER) | payer OTHER ==
[~2017-08-19] VITALS: Ht 162.6 cm; Wt 126.4 kg
[~2017-08-19 15:37] MED LIST changes: -KETO10TA PO; -MAGN400T6 PO; -ONDA4TAB65 PO; -PROP10TA7 PO; -RIBO100T9 PO; -SPR28 PO; -VNTHFA/IN INH
[2017-08-19 15:40] VITALS: TEMP 36.4; Ht 162.6 cm; Wt 126.4 kg
[2017-08-19] MEDS ORDERED: CETI10TA10 PO (16:36)
[2017-08-19] MEDS ORDERED: RIZA1TAB11 PO (16:36)
[2017-08-19] MEDS ORDERED: PANT40TA2 PO (16:36)
[2017-08-19] MEDS ORDERED: ERGO500011 PO (16:36)
[2017-08-19] MEDS ORDERED: ATV1 PO (16:36)
[2017-08-19] MEDS ORDERED: CYM30 PO (16:36)
--- NOTE | 2017-08-19 16:48 | DIAGNOSTIC IMAGING REPORT ---
RIGHT CLAVICLE 2 VIEWS HISTORY: right back/shoulder/clavicle pain COMPARISON: None. FINDINGS: There is no fracture or dislocation. Soft tissues are unremarkable. No radiopaque foreign bodies. IMPRESSION: No fractures within the right clavicle. Electronically signed by: Abhay Kimbrough M.D. 08/19/2017 4:47 PM Dictated Date/Time: 08/19/2017 4:46 PM
--- NOTE | 2017-08-19 16:49 | DIAGNOSTIC IMAGING REPORT ---
RIGHT SHOULDER 3 VIEWS HISTORY: right back/shoulder/clavicle pain COMPARISON: None. FINDINGS: There is no fracture or dislocation. Soft tissues are unremarkable. No radiopaque foreign bodies. IMPRESSION: No fracture or dislocation within the right shoulder. Electronically signed by: Abhay Kimbrough M.D. 08/19/2017 4:48 PM Dictated Date/Time: 08/19/2017 4:47 PM
--- NOTE | 2017-08-19 16:51 | DIAGNOSTIC IMAGING REPORT ---
THORACIC SPINE 3 VIEWS HISTORY: right back/shoulder/clavicle pain COMPARISON: None. FINDINGS: There is no fracture. No subluxation. Mild disc space narrowing within the upper to mid thoracic spine. Paraspinal soft tissues are unremarkable. IMPRESSION: No fracture or subluxation within the thoracic spine. Mild degenerative disc disease within the upper to mid thoracic spine. Electronically signed by: Abhay Kimbrough M.D. 08/19/2017 4:49 PM Dictated Date/Time: 08/19/2017 4:48 PM
[2017-08-19] MEDS ORDERED: NPR500 PO (17:11)
[2017-08-19] MEDS ORDERED: CYCL10TA6 PO (17:11)
--- NOTE | 2017-08-19 17:16 | EMERGENCY ROOM VISIT NOTE ---
History First contact with patient: 15:43 Chief Complaint: SHOULDER PAIN Stated Complaint: PAIN IN RT SHOULDERS, CLAVICLE History of Present Illness The patient is a 37 year old female who presents to the Emergency Room with complaints of right shoulder pain. The patient reports that a few days ago, she was at work and was stretching when she felt a cracking sensation in her right shoulder/clavicle. She states that she has pain in the right shoulder blade and right clavicle which radiates down the right arm. She has some numbness intermittently in her right fifth finger. She states the pain is sharp and rates the discomfort a 7/10. It is worse when the patient rotates her neck to the left or flexes her neck. She denies any history of similar symptoms. She denies fevers, chills, chest pain or shortness of breath. She states that the pain is worse when she tries to sleep at night. She took 800 mg of ibuprofen today without relief of the pain. Review of Systems A complete 6 point review of systems was reviewed with the patient with pertinent positives and negatives as per history of present illness. All else were negative. Past Medical/Surgical History Medical Problems: (1) Asthma, mild persistent (2) Depression (3) GERD (gastroesophageal reflux disease) (4) Migraine Surgical Problems: (1) H/O exploratory laparotomy (2) History of carpal tunnel surgery (3) S/P surgical manipulation of ankle joint Family History FH: breast cancer MOTHER Social History Smoking Status: Former Smoker Alcohol Use: occasionally Drug Use: none Housing Status: lives with family Current/Historical Medications Scheduled Cyclobenzaprine Hcl (Flexeril), 10 MG PO TID Duloxetine HCl (Duloxetine HCl), 30 MG PO DAILY Ergocalciferol (Vitamin D 26188 Unit), 50,000 INTER.UNIT PO 3XWK Ethinyl Estrad/Norgestimate (Sprintec 28), 1 TAB PO HS Magnesium Oxide (Mag-Ox), 400 MG PO HS Naproxen (Naprosyn), 500 MG PO BID Pantoprazole (Pantoprazole Sodium), 40 MG PO BID Riboflavin (Vitamin B-2), 100 MG PO QAM Scheduled PRN Albuterol Hfa (Ventolin Hfa), 2 PUFFS INH QID PRN for SOB/Wheezing Amphetamine-Dextroamphetamine 20MG (Adderall 20MG), 20 MG PO BID PRN for Focus Pzzsncd-Laqkiykwtkeef-Tuavoagx (Excedrin Migraine), 2 TABS PO Q6H PRN for Migraine Cetirizine Hcl (Zyrtec), 10 MG PO DAILY PRN for Allergy Symptoms Ketorolac (Toradol), 10 MG PO QID PRN for Pain Lorazepam (Lorazepam), 1 MG PO HS PRN for Restless Legs Ondansetron Hcl (Zofran), 4 MG PO TID PRN for Nausea Propranolol Hcl (Inderal), 10 MG PO BID PRN for Migraine Rizatriptan Benzoate (Rizatriptan Benzoate), 10 MG PO UD PRN for Migraine Tramadol (Ultram), 50 MG PO Q4H PRN for Migraine Physical Exam Vital Signs Date Time Temp Pulse Resp B/P (MAP) Pulse Ox O2 Delivery O2 Flow Rate FiO2 08/19/17 17:26 80 19 127/84 97 08/19/17 15:40 36.4 80 17 134/90 97 Room Air Physical Exam VITALS: Vitals are noted on the nurse's note and reviewed by myself. Vital signs stable. GENERAL: This is a 37-year-old female, in no acute distress, nondiaphoretic, well-developed well-nourished. SKIN: No rashes noted. HEART: Regular rate and rhythm without murmurs gallops or rubs. LUNGS: Clear to auscultation bilaterally without wheezes, rales or rhonchi. No retractions or accessory muscle use. MUSCULOSKELETAL: There is mild generalized tenderness to palpation of the right posterior shoulder as well as the right anterior shoulder/clavicle. The patient is particularly tender over the right thoracic paraspinous muscles. She has no tenderness over the thoracic spinous processes. Full range of motion of bilateral upper extremities. [address] Commissioner strength 5/5. Radial pulse 2+. NEURO: Patient was alert and oriented to person place and time. Normal sensation of the right upper extremity. Medical Decision & Procedures ER Provider Diagnostic Interpretation: THORACIC SPINE 3 VIEWS FINDINGS: There is no fracture. No subluxation. Mild disc space narrowing within the upper to mid thoracic spine. Paraspinal soft tissues are unremarkable. IMPRESSION: No fracture or subluxation within the thoracic spine. Mild degenerative disc disease within the upper to mid thoracic spine. RIGHT SHOULDER 3 VIEWS FINDINGS: There is no fracture or dislocation. Soft tissues are unremarkable. No radiopaque foreign bodies. IMPRESSION: No fracture or dislocation within the right shoulder. RIGHT CLAVICLE 2 VIEWS FINDINGS: There is no fracture or dislocation. Soft tissues are unremarkable. No radiopaque foreign bodies. IMPRESSION: No fractures within the right clavicle. Medical Decision Differential diagnosis includes radiculopathy, rotator cuff injury, muscle spasm , among others. The patient was evaluated as above. X-rays of the thoracic spine, right clavicle and right shoulder were obtained and read by radiology as above. There were no significant findings other than some mild degenerative disc disease in the thoracic spine. The patient is particularly tender in the right thoracic paraspinous muscles and I feel that her symptoms are likely secondary to a spasm in that area. She was advised to take anti-inflammatories and given a prescription for Naprosyn. She was given a prescription for Flexeril for symptomatically improvement. I discussed conservative measures including heating pad, massage and gentle stretching. She will follow-up with her primary care provider for further evaluation of this if symptoms persist. She verbalized understanding of my assessment and treatment plan and was discharged home in good condition. Medication Reconcilliation Current Medication List: was personally reviewed by me Blood Pressure Screening Patient's blood pressure: Normal blood pressure Impression Primary Impression: Right shoulder pain Departure Information Dispostion Home / Self-Care Condition GOOD Prescriptions Naproxen (Naprosyn) 500 Mg Tab 500 MG PO BID for 10 Days, #20 TAB Prov: Lorena Nj PA-C 08/19/17 Cyclobenzaprine Hcl (FLEXERIL) 10 Mg Tab 10 MG PO TID for 5 Days, #15 TAB Prov: Lorena Nj PA-C 08/19/17 Referrals Dian Parker D.O. (PCP) Patient Instructions My [facility] Additional Instructions You have been treated in the Emergency Department for Back/shoulder Pain. You have been prescribed Flexeril (cyclobenzaprine) 1 tab orally, three times per day. Do NOT exceed 30 mg per day. Take your first dose at bedtime as it can make you drowsy. Always take all medications as prescribed. Naprosyn as prescribed. You may apply a heating pad to the area several times daily to help soothe the muscles. You may also use topical treatment such as icy hot or BenGay. You should schedule a follow-up appointment in 2-3 days with your Primary Care Provider for further evaluation and treatment of your back pain. Return to the Emergency Department if your current symptoms worsen despite treatment course outlined above, or if you develop any of the following symptoms : intractable pain despite aforementioned treatment course, loss of control of your bowel or bladder, numbness or tingling in your groin, or development of a fever. Problem Qualifiers Primary Impression: Right shoulder pain Chronicity: acute Qualified Codes: M25.511 - Pain in right shoulder
[2017-08-19 17:26] VITALS: BP 127/84; PULSE 80; O2SAT 97
[2017-08-19] MEDS ORDERED: KETO10TA PO (20:42)
[2017-08-19] MEDS ORDERED: PROP10TA7 PO (20:42)
[2017-08-19] MEDS ORDERED: ONDA4TAB65 PO (20:42)
[2017-08-19] MEDS ORDERED: VNTHFA/IN INH (23:45)
[2017-08-19] MEDS ORDERED: RIBO100T9 PO (23:47)
[2017-08-19] MEDS ORDERED: SPR28 PO (23:47)
[2017-08-19] MEDS ORDERED: MAGN400T6 PO (23:47)
== END 2017-08-19 17:27 | disposition home or self-care (01) ==
LOC: C.EDB 15:38 → C.EDD 17:27
DX: M25.511 Pain in right shoulder (principal); M51.34 Other intervertebral disc degeneration, thoracic region; M54.10 Radiculopathy, site unspecified; R20.0 Anesthesia of skin; J45.909 Unspecified asthma, uncomplicated; F32.9 Major depressive disorder, single episode, unspecified; K21.9 Gastro-esophageal reflux disease without esophagitis; Z87.891 Personal history of nicotine dependence; Z79.3 Long term (current) use of hormonal contraceptives; Z80.3 Family history of malignant neoplasm of breast

== ENCOUNTER 2018-01-02 10:04 | Emergency (ER) | payer OTHER ==
[~2018-01-02] VITALS: Ht 161.3 cm; Wt 131.2 kg
[~2018-01-02 10:04] MED LIST changes: -ATV/1 PO; +ATV1 PO; +CETI10TA10 PO; -CETI10TA84 PO; -CYM/30 PO; +CYM30 PO; +ERGO500011 PO; -ERGO500037 PO; +KETO10TA PO; +MAGN400T6 PO; +ONDA4TAB65 PO; -PANT1TAB3 PO; +PANT40TA2 PO; +PROP10TA7 PO; +RIBO100T9 PO; -RIZA10TA19 PO; +RIZA1TAB11 PO; +SPR28 PO; +VNTHFA/IN INH
[2018-01-02 10:09] VITALS: TEMP 36.7; Ht 161.3 cm; Wt 131.2 kg
[2018-01-02] MEDS ORDERED: DEXAMETHASONE SOD INJ 4 MG/ML 5 ML VIAL IM STA (10:29)
[2018-01-02] MEDS ORDERED: PROMETHAZINE HCL INJ 25 MG/ML 1 ML VIAL IM STA (10:29)
[2018-01-02] MEDS ORDERED: KETOROLAC TROMETHAMINE 60 MG/2 ML VIAL IM STA (10:29)
[2018-01-02] MEDS ORDERED: DEXAMETHASONE SOD INJ 10 MG/ML VIAL ONE (10:45)
[2018-01-02] MEDS ORDERED: AZITTAB PO (11:04)
--- NOTE | 2018-01-02 11:29 | EMERGENCY ROOM VISIT NOTE ---
History First contact with patient: 10:18 Chief Complaint: HEADACHE Stated Complaint: MIGRAINE,RT EAR PAIN History of Present Illness The patient is a 37 year old female who presents to the Emergency Room with complaints of migraine headache and right ear pain. The patient states that her headache started yesterday morning. She states that it is a generalized headache which is typical for her migraines. She also has associated photophobia, dizziness but denies any other visual changes. She currently rates the pain at a 7 out of 10. The patient admits to nausea but denies any vomiting. The patient states she took Maxalt twice yesterday and once today. She is followed by Dr. Noel for her migraine headaches. She was on prophylactic migraine medications but they did not work for her. She has her follow-up appointment with Dr. Noel in April. The patient is also complaining of right ear pain and pressure. Her cold symptoms of sore throat, fever, cough or chest congestion. She does have a history of recurrent ear infections as a child. Review of Systems 10 system review was performed and was negative unless stated otherwise history of present illness. Past Medical/Surgical History Medical Problems: (1) Asthma, mild persistent (2) Depression (3) GERD (gastroesophageal reflux disease) (4) Migraine Surgical Problems: (1) H/O exploratory laparotomy (2) History of carpal tunnel surgery (3) S/P surgical manipulation of ankle joint Family History FH: breast cancer MOTHER Social History Smoking Status: Former Smoker Alcohol Use: occasionally Drug Use: none Housing Status: lives with family Current/Historical Medications Scheduled Azithromycin (Zithromax Z-Jordin), 0 PO UD Duloxetine HCl (Duloxetine HCl), 30 MG PO DAILY Ergocalciferol (Vitamin D 26582 Unit), 50,000 INTER.UNIT PO 3XWK Ethinyl Estrad/Norgestimate (Sprintec 28), 1 TAB PO HS Magnesium Oxide (Mag-Ox), 400 MG PO HS Pantoprazole (Pantoprazole Sodium), 40 MG PO BID Riboflavin (Vitamin B-2), 100 MG PO QAM Scheduled PRN Albuterol Hfa (Ventolin Hfa), 2 PUFFS INH QID PRN for SOB/Wheezing Amphetamine-Dextroamphetamine 20MG (Adderall 20MG), 20 MG PO BID PRN for Focus Wlqzofr-Zakswfuerptwn-Snivtgnb (Excedrin Migraine), 2 TABS PO Q6H PRN for Migraine Cetirizine Hcl (Zyrtec), 10 MG PO DAILY PRN for Allergy Symptoms Ketorolac (Toradol), 10 MG PO QID PRN for Pain Lorazepam (Lorazepam), 1 MG PO HS PRN for Restless Legs Ondansetron Hcl (Zofran), 4 MG PO TID PRN for Nausea Propranolol Hcl (Inderal), 10 MG PO BID PRN for Migraine Rizatriptan Benzoate (Rizatriptan Benzoate), 10 MG PO UD PRN for Migraine Tramadol (Ultram), 50 MG PO Q4H PRN for Migraine Physical Exam Vital Signs Date Time Temp Pulse Resp B/P (MAP) Pulse Ox O2 Delivery O2 Flow Rate FiO2 01/02/18 10:09 36.7 103 17 132/90 97 Room Air Physical Exam GENERAL: 37-year-old white female appears lying in a darkened room in no acute distress. MENTAL STATUS: Patient is alert and oriented x3 EYES: PERRLA. EOMs intact. EARS: Canals clear. Right TM with diffuse scarring noted. Purulent fluid level noted behind the TM. No erythema. Left TM with some scarring but no erythema or fluid level noted. NECK: Supple, no lymphadenopathy noted. No carotid bruits noted. LUNGS: Clear auscultation without wheezes rales or rhonchi. CARDIAC: Regular rate and rhythm without murmur. Pulses is full and equal throughout. ABDOMEN: Positive bowel sounds all 4 quadrants. Soft, nontender to palpation without organomegaly or masses. NEURO:Cranial nerves two through 12 intact. Cerebellar function intact with [id number]. Fine motor intact with alternating finger motions. Medical Decision & Procedures Medications Administered Medications (Trade) Dose Ordered Sig/Paco Route Start Time Stop Time Status Last Admin Dose Admin Diphenhydramine HCl (Benadryl Cap) 50 mg NOW ONCE PO 01/02/18 10:30 01/02/18 10:34 DC 01/02/18 10:48 50 MG Promethazine HCl (Phenergan Inj) 25 mg NOW STAT IM 01/02/18 10:29 01/02/18 10:34 DC 01/02/18 10:48 25 MG Ketorolac Tromethamine (Toradol Inj) 60 mg NOW STAT IM 01/02/18 10:29 01/02/18 10:34 DC 01/02/18 10:49 60 MG Dexamethasone Sodium Phosphate (Decadron Inj) 10 mg STK-MED ONCE .ROUTE 01/02/18 10:45 01/02/18 10:46 DC 01/02/18 10:48 10 MG ED Course The patient was evaluated. The patient was given Decadron 10 mg IM, Toradol 60 mg IM, Benadryl 50 mg p.o. and Zofran 4 mg ODT. The patient was reevaluated and was feeling better. The patient was discharged home with her mother driving.. Medical Decision The patient presented with her typical migraine headache symptoms therefore I did not feel an imaging study was warranted. [place] Drug Monitoring Program Search Results: patient reviewed within database Medication Reconcilliation Current Medication List: was personally reviewed by me Blood Pressure Screening Patient's blood pressure: Normal blood pressure Impression Primary Impression: Migraine Additional Impression: Otitis media Departure Information Dispostion Home / Self-Care Condition GOOD Prescriptions Azithromycin (ZITHROMAX Z-JORDIN) 250 Mg Tab 0 PO UD, #1 PKT Prov: Joanne Monreal PA-C 01/02/18 Referrals Dian Parker D.O. (PCP) Forms HOME CARE DOCUMENTATION FORM, IMPORTANT VISIT INFORMATION Patient Instructions ED Headache Migraine, ED Otitis Media Acute Adult, My [facility] Additional Instructions Go home and rest in a dark room for the remainder of the day. Take Zithromax as prescribed for your ear infection. Also recommend [id number] nasal decongestant for 5 days. If symptoms persist recommend follow with Dr. Noel for reevaluation. If symptoms worsen and you have uncontrolled nausea and vomiting, severe headache return to the ER. Problem Qualifiers Primary Impression: Migraine Migraine type: without aura Status migrainosus presence: without status migrainosus Intractability: not intractable Qualified Codes: G43.009 - Migraine without aura, not intractable, without status migrainosus Additional Impression: Otitis media Otitis media type: suppurative Chronicity: acute Laterality: right Recurrence: recurrent Spontaneous tympanic membrane rupture: without spontaneous rupture Qualified Codes: H66.004 - Acute suppurative otitis media without spontaneous rupture of ear drum, recurrent, right ear
[2018-01-02 11:58] VITALS: BP 128/73; PULSE 72; O2SAT 98
== END 2018-01-02 11:58 | disposition home or self-care (01) ==
LOC: C.EDB 10:07 → C.EDC 11:58
DX: G43.009 Migraine without aura, not intractable, without status migrainosus (principal); H66.004 Acute suppurative otitis media without spontaneous rupture of ear drum, recurrent, right ear; J45.909 Unspecified asthma, uncomplicated; F32.9 Major depressive disorder, single episode, unspecified; K21.9 Gastro-esophageal reflux disease without esophagitis; Z87.891 Personal history of nicotine dependence; Z79.899 Other long term (current) drug therapy